=== PATIENT | female | born 1940 | race Caucasian/White ===

== ENCOUNTER 2016-10-25 14:00 | Outpatient (CLI) | payer MEDICARE ==
[~2016-10-25] VITALS: Ht 157.5 cm; Wt 56.7 kg
[~2016-10-25 14:00] MED LIST: AMLO5TAB2 PO; ATOR10TA66 PO; BENA20TA2 PO; HYDR-3714 PO; LISI20TA PO; NAPR220C11 PO; PANT40TA2 PO; PRAV40TA2 PO; UBID1CAP53 PO; VITAMINE D3 PO
== END 2016-10-25 14:27 ==
LOC: PREOP 14:00
PROVIDERS: ATTEND Surgery
DX: Z01.818 Encounter for other preprocedural examination (principal); Z12.11 Encounter for screening for malignant neoplasm of colon

== ENCOUNTER → 2016-11-30 | Outpatient (CLI) | payer MEDICARE | LOC: PREOP 05:39 | PROVIDERS: ATTEND Surgery | DX: Z01.818 Encounter for other preprocedural examination (principal); Z12.11 Encounter for screening for malignant neoplasm of colon ==

== ENCOUNTER 2016-12-04 06:26 | Day surgery (SDC) | payer MEDICARE ==
[~2016-12-04] VITALS: Ht 157.5 cm; Wt 61.2 kg
[2016-12-04] MEDS ORDERED: FLUMAZENIL (ROMAZICON) 0.1 MG/ML 5 ML VIAL INJ PRN (06:45)
[2016-12-04] MEDS ORDERED: NALOXONE 0.4 MG/ML 1 ML (NARCAN) VIAL IVP PRN (06:45)
[2016-12-04] MEDS ORDERED: NS IV 500 ML 500 ML IV SCH (06:45)
[2016-12-04 06:57] VITALS: BP 127/58
[2016-12-04] MEDS ORDERED: MIDAZOLAM 2 MG/2 ML (VERSED) VIAL ONE ×3 (07:49→08:47)
[2016-12-04] MEDS ORDERED: fentaNYL INJECTION 100 MCG/2 ML AMP ONE (07:50)
[2016-12-04] MEDS: fentaNYL INJECTION 100 MCG/2 ML AMP IVP PRN ×2 (08:38→08:47)
[2016-12-04] MEDS: MIDAZOLAM 2 MG/2 ML (VERSED) VIAL IVP PRN ×3 (08:40→08:50)
--- NOTE | 2016-12-04 09:05 | Endoscopy Procedure Report ---
Endoscopy Report Date: December 04, 2016 Preoperative Diagnosis: screening Study Performed: Colonoscopy Procedure Instrument: Colonoscope Endo Procedure/Findings Findings 1.: Diverticulitis Copy Copies To 1: HARPAL BURR XAVIER M MD December 04, 2016 9:05 am
--- NOTE | 2016-12-04 09:05 | Conscious Sedation/ASA ---
Conscious Sedation Pre-Proced Time Reviewed: 08:20 ASA Class: 2 Airway Mallampati Classification: (seneca appropriate class) I. II. III, IV Lungs Heart ASA score ASA 1: a normal healthy patient ASA 2: a patient with a mild systemic disease (mid diabetes, controlled hypertension, obesity ASA 3: a patient with a severe systemic disease that limits activity (angina , COPD, prior Myocardial infarction) ASA 4: a patient with an incapacitating disease that is a constant threat to life (CHF, renal failure) ASA 5: a moribund patient not expected to survive 24 hrs. (ruptured aneurysm) ASA 6: a declared brain patient whose organs are being harvested. For emergent operations, add the letter E after the classification Grade 1 Sedation Plan: Discussed options with patient/fam Note The patient is an appropriate candidate to undergo the planned procedure, sedation, and anesthesia. The patient immediately re-assessed prior to indication. JURGEN GARCIA MD December 04, 2016 9:05 am
--- NOTE | 2016-12-04 09:07 | Discharge Inst-Simple/Standard ---
Discharge Inst-Standard Discharge Medications New, Converted or Re-Newed RX: Other Patient Instructions/Follow Up Plan of Care/Instructions/FU: follow-up with her primary as needed Activity as Tolerated: Yes Discharge Diet: No Restrictions JURGEN GARCIA MD December 04, 2016 9:06 am
[2016-12-04 09:15] VITALS: BP 113/71
--- NOTE | 2016-12-04 09:20 | OPERATIVE REPORT ---
DATE OF SERVICE: 12/04/2016 PROCEDURE PERFORMED: Screening colonoscopy. SURGEON: Jurgen Garcia M.D. INDICATIONS FOR PROCEDURE: This lady came in for screening colonoscopy. She denied any family history of colon cancer. Informed consent was obtained after reviewing the procedure in detail. DESCRIPTION OF PROCEDURE: She was placed in left lateral decubitus position and her vital signs were monitored. Conscious sedation was achieved using Versed and fentanyl. Digital rectal examination was unremarkable. The colonoscope was then introduced into the rectum and advanced all the way up to the cecum. The quality of bowel preparation was acceptable. The scope was then withdrawn slowly and the mucosa examined in a systematic fashion. FINDINGS: 1. Very few sigmoid diverticula. 2. A 2 mm submucosal lipoma, close to the cecum. This may well be observed. She tolerated the procedure well and was taken back to the nursing unit in stable condition. IMPRESSION: Screening colonoscopy. No polyps. Incidental, small submucosal lipoma, reasonable to observe. Job ID: [id number] DocumentID: [id number] Dictated Date: 12/04/2016 09:01:43 Sql Programmer Date: 12/04/2016 09:20:07 Dictated By: JURGEN GARCIA MD [facility]
[2016-12-04 09:45] VITALS: BP 117/74
[2016-12-04 10:05] VITALS: BP 117/74
== END 2016-12-04 10:05 | disposition home or self-care (01) ==
LOC: ENDO 06:26
PROVIDERS: ATTEND Surgery
DX: Z12.11 Encounter for screening for malignant neoplasm of colon (principal); K57.90 Diverticulosis of intestine, part unspecified, without perforation or abscess without bleeding; D17.5 Benign lipomatous neoplasm of intra-abdominal organs; I10 Essential (primary) hypertension; H40.9 Unspecified glaucoma; Z79.899 Other long term (current) drug therapy

== ENCOUNTER → 2017-10-17 | Outpatient (CLI) | payer MEDICARE ==
--- NOTE | 2017-10-17 19:31 | Diagnostic Imaging Report ---
INDICATION: Sacral and lower back pain without injury. Pain comes and goes with no radiculopathy. Symptoms for approximately one year. COMPARISON STUDY: MRI of the lumbar spine from 2014. Plain films of the lumbar spine from 2014. FINDINGS: Frontal and lateral views of the lumbar spine demonstrate some increased disc space narrowing with development of mild anterolisthesis at L4-L5. Disc space narrowing at L5-S1 has not appreciably changed. Facet arthropathy is present in the lower lumbar spine. No fractures are present. IMPRESSION: There are increasing degenerative changes at L4-L5. No fractures are present. Dictated by: Dictated on workstation # [id number]
== END ==
LOC: RAD 16:54
PROVIDERS: ATTEND Family Medicine
DX: M47.816 Spondylosis without myelopathy or radiculopathy, lumbar region (principal)
CPT/HCPCS: 72100

== ENCOUNTER 2018-10-16 10:04 | Inpatient (IN) | payer MEDICARE ==
[~2018-10-16] VITALS: Ht 154.9 cm; Wt 62.7 kg
[~2018-10-16 10:04] MED LIST changes: -BENA20TA2 PO; +BENA20TA7 PO
--- OUTSIDE RECORDS SUMMARY | 2018-10-16 10:21 | XMS REPORT | Continuity of Care Document ---
Author Author [facility] Organization [facility] Address Unknown Phone Unavailable Allergies Active Description Code Type Severity Reaction Onset Reported/Identified Relationship to Patient Clinical Status Yes No Known Drug Allergies [id number] Drug Allergy Unknown N/A 04/29/2012 Medications There is no data. Problems Date Dx Coded Attending Type Code Diagnosis Diagnosed By 04/30/2012 Ot 211.3 BENIGN NEOPLASM LG BOWEL 04/30/2012 Ot 214.3 LIPOMA INTRA- ABDOMINAL 04/30/2012 Ot V12.72 PERSONAL HISTORY OF COLONIC POLYPS 04/30/2012 Ot V76.51 SCREEN MAL NEOP-COLON 02/03/2013 HARPAL TEJEDA DO S Ot 724.00 SPINAL STENOSIS NOS 02/03/2013 HARPAL TEJEDA DO S Ot V57.1 PHYSICAL THERAPY NEC 03/09/2014 NICKI SWIFT, ZAIN Baum Ot 722.10 LUMBAR DISC DISPLACEMENT 03/09/2014 NICKI SWIFT, ZAIN Baum Ot 724.03 SPINAL STENOSIS, LUMBAR REGION, W NEUROG 01/20/2016 RADHA SWIFT, JURGEN Wood Ot K25.0 ACUTE GASTRIC ULCER WITH HEMORRHAGE 01/20/2016 RADHA SWIFT, JURGEN Wood Ot K29.80 DUODENITIS WITHOUT BLEEDING 01/21/2016 RADHA SWIFT, JURGEN Wood Ot K25.0 ACUTE GASTRIC ULCER WITH HEMORRHAGE 01/21/2016 RADHA SWIFT, JURGEN Wood Ot K29.80 DUODENITIS WITHOUT BLEEDING 02/15/2016 Ot V76.12 OTH SCREEN MAMMO-MALIGN NEOPLASM OF SARTHAK 02/15/2016 Ot V72.84 EXAM PRE- OPERATIVE NOS 02/15/2016 HARPAL TEJEDA DO S Ot 724.02 SPINAL STENOSIS, LUMBAR REG, W/OUT NEURO 02/15/2016 HARPAL TEJEDA DO S Ot 724.2 LUMBAGO 02/15/2016 ZAIN CACERES MD Ot 722.52 LUMB/LUMBOSAC DISC DEGEN 02/15/2016 ZAIN CACERES MD Ot 724.02 SPINAL STENOSIS, LUMBAR REG, W/OUT NEURO 02/15/2016 ZAIN CACERES MD Ot V72.63 PRE-PROCEDURAL LABORATORY EXAMINATION 02/15/2016 ZAIN CACERES MD Ot V74.8 SCREEN-BACTERIAL DIS NEC 02/16/2016 PATI LUNA Bella CARGO ROUTER Ot F03.90 UNSPECIFIED DEMENTIA WITHOUT BEHAVIORAL 02/16/2016 PATI LUNA Bella CARGO ROUTER Ot R41.3 OTHER AMNESIA 03/02/2016 ORENDER DO, HARPAL S Ot 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 03/02/2016 ORENDER DO, HARPAL S Ot 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 03/02/2016 ORENDER DO, HARPAL S Ot R01.1 CARDIAC MURMUR, UNSPECIFIED 03/07/2016 PATI LUNA Bella CARGO ROUTER Ot F03.90 UNSPECIFIED DEMENTIA WITHOUT BEHAVIORAL 03/07/2016 PATI LUNA Bella CARGO ROUTER Ot R41.3 OTHER AMNESIA 03/24/2016 ORENDER DO, HARPAL S Ot 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 03/24/2016 ORENDER DO, HARPAL S Ot 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 03/24/2016 ORENDER DO, HARPAL S Ot R01.1 CARDIAC MURMUR, UNSPECIFIED 10/25/2016 RADHA SWIFT, JURGEN Wood Ot Z01.818 ENCOUNTER FOR OTHER PREPROCEDURAL EXAMIN 10/25/2016 RADHA SWIFT, JURGEN Wood Ot Z12.11 ENCOUNTER FOR SCREENING FOR MALIGNANT NE 10/25/2016 RADHA SWIFT, JURGEN Wood Ot Z01.818 ENCOUNTER FOR OTHER PREPROCEDURAL EXAMIN 10/25/2016 JURGEN GARCIA MD Ot Z12.11 ENCOUNTER FOR SCREENING FOR MALIGNANT NE 10/27/2016 RADHA SWIFT, JURGEN Wood Ot Z01.818 ENCOUNTER FOR OTHER PREPROCEDURAL EXAMIN 10/27/2016 RADHA SWIFT, JURGEN Wood Ot Z12.11 ENCOUNTER FOR SCREENING FOR MALIGNANT NE 10/27/2016 RADHA SWIFT, JURGEN Wood Ot Z01.818 ENCOUNTER FOR OTHER PREPROCEDURAL EXAMIN 10/27/2016 RADHA SWIFT, JURGEN Wood Ot Z12.11 ENCOUNTER FOR SCREENING FOR MALIGNANT NE 12/04/2016 Ot V76.12 OTH SCREEN MAMMO-MALIGN NEOPLASM OF SARTHAK 12/04/2016 Ot V72.84 EXAM PRE- OPERATIVE NOS 12/04/2016 HARPAL TEJEDA DO Ot 724.02 SPINAL STENOSIS, LUMBAR REG, W/OUT NEURO 12/04/2016 HARPAL TEJEDA DO Ot 724.2 LUMBAGO 12/04/2016 ZAIN CACERES MD Ot 722.52 LUMB/LUMBOSAC DISC DEGEN 12/04/2016 ZAIN CACERES MD Ot 724.02 SPINAL STENOSIS, LUMBAR REG, W/OUT NEURO 12/04/2016 ZAIN CACERES MD Ot V72.63 PRE-PROCEDURAL LABORATORY EXAMINATION 12/04/2016 ZAIN CACERES MD Ot V74.8 SCREEN-BACTERIAL DIS NEC 12/04/2016 PATI LUNA CARGO ROUTER Ot F03.90 UNSPECIFIED DEMENTIA WITHOUT BEHAVIORAL 12/04/2016 PATI LUNA CARGO ROUTER Ot R41.3 OTHER AMNESIA 12/04/2016 HARPAL TEJEDA DO Ot 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 12/04/2016 HARPAL TEJEDA DO S Ot 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 12/04/2016 HARPAL TEJEDA DO S Ot R01.1 CARDIAC MURMUR, UNSPECIFIED 12/04/2016 RADHA SWIFT, JURGEN Wood Ot Z01.818 ENCOUNTER FOR OTHER PREPROCEDURAL EXAMIN 12/04/2016 JURGEN GARCIA MD Ot Z12.11 ENCOUNTER FOR SCREENING FOR MALIGNANT NE 12/04/2016 JURGEN GARCIA MD Ot 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 12/04/2016 JURGEN GARCIA MD Ot H40.9 UNSPECIFIED GLAUCOMA 12/04/2016 JURGEN GARCIA MD Ot I10 ESSENTIAL (PRIMARY) HYPERTENSION 12/04/2016 JURGEN GARCIA MD Ot K57.90 DVRTCLOS OF INTEST, PART UNSP, W/O PERF 12/04/2016 JURGEN GARCIA MD Ot Z12.11 ENCOUNTER FOR SCREENING FOR MALIGNANT NE 12/04/2016 JURGEN GARCIA MD Ot Z79.899 OTHER HUMAN RESOURCES VICE PRESIDENT (CURRENT) DRUG THERAPY 12/06/2016 JURGEN GARCIA MD Ot 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 12/06/2016 JURGEN GARCIA MD Ot H40.9 UNSPECIFIED GLAUCOMA 12/06/2016 JURGEN GARCIA MD Ot I10 ESSENTIAL (PRIMARY) HYPERTENSION 12/06/2016 JURGEN GARCIA MD Ot K57.90 DVRTCLOS OF INTEST, PART UNSP, W/O PERF 12/06/2016 JURGEN GARCIA MD Ot Z12.11 ENCOUNTER FOR SCREENING FOR MALIGNANT NE 12/06/2016 JURGEN GARCAI MD Ot Z79.899 OTHER HUMAN RESOURCES VICE PRESIDENT (CURRENT) DRUG THERAPY 12/15/2016 JURGEN GARCIA MD Ot 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 12/15/2016 JURGEN GARCIA MD Ot H40.9 UNSPECIFIED GLAUCOMA 12/15/2016 JURGEN GARCIA MD Ot I10 ESSENTIAL (PRIMARY) HYPERTENSION 12/15/2016 JURGEN GARCIA MD Ot K57.90 DVRTCLOS OF INTEST, PART UNSP, W/O PERF 12/15/2016 JURGEN GARCIA MD Ot Z12.11 ENCOUNTER FOR SCREENING FOR MALIGNANT NE 12/15/2016 JURGEN GARCIA MD Ot Z79.899 OTHER [facility] (CURRENT) DRUG THERAPY 10/18/2017 Ot V72.84 EXAM PRE- OPERATIVE NOS 10/18/2017 HARPAL TEJEDA DO Ot 724.02 SPINAL STENOSIS, LUMBAR REG, W/OUT NEURO 10/18/2017 HARPAL TEJEDA DO Ot 724.2 LUMBAGO 10/18/2017 ZAIN CACERES MD Ot 722.52 LUMB/LUMBOSAC DISC DEGEN 10/18/2017 ZAIN CACERES MD Ot 724.02 SPINAL STENOSIS, LUMBAR REG, W/OUT NEURO 10/18/2017 ZAIN CACERES MD Ot V72.63 PRE-PROCEDURAL LABORATORY EXAMINATION 10/18/2017 ZAIN CACERES MD Ot V74.8 SCREEN-BACTERIAL DIS NEC 10/18/2017 PATI LUNA CARGO ROUTER Ot F03.90 UNSPECIFIED DEMENTIA WITHOUT BEHAVIORAL 10/18/2017 PATI LUNA CARGO ROUTER Ot R41.3 OTHER AMNESIA 10/18/2017 HARPAL TEJEDA DO Ot 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 10/18/2017 HARPAL TEJEDA DO Ot 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 10/18/2017 HARPAL TEJEDA DO Ot R01.1 CARDIAC MURMUR, UNSPECIFIED 10/18/2017 RADHA SWIFT, JURGEN Wood Ot Z01.818 ENCOUNTER FOR OTHER PREPROCEDURAL EXAMIN 10/18/2017 JURGEN GARCIA MD Ot Z12.11 ENCOUNTER FOR SCREENING FOR MALIGNANT NE 10/18/2017 HARPAL TEJEDA DO Ot M47.816 SPONDYLOSIS W/O MYELOPATHY OR RADICULOPA 10/18/2017 AMINAH CHRISTIANSON HARPAL Marsh Ot M47.816 SPONDYLOSIS W/O MYELOPATHY OR RADICULOPA 11/14/2017 AMINAH CHRISTIANSON HARPAL S Ot M47.816 SPONDYLOSIS W/O MYELOPATHY OR RADICULOPA Procedures There is no data. Results There is no data. Encounters ACCT No. Visit Date/Time Discharge Status Pt. Type Provider Facility Loc./Unit Complaint [id number] 10/17/2017 16:54:00 10/17/2017 23:59:59 CLS Outpatient AMINAH DO HARPAL S [facility] RAD M54.5 [id number] 12/04/2016 06:26:00 12/04/2016 10:05:00 DIS Outpatient JURGEN GARCIA MD [facility] ENDO SCREENING [id number] 11/30/2016 05:39:00 11/30/2016 23:59:59 CLS Outpatient JURGEN GARCIA MD [facility] PREOP SCREENING [id number] 10/25/2016 14:00:00 10/25/2016 14:27:00 DIS Outpatient JURGEN GARCIA MD [facility] PREOP SCREENING [id number] 03/01/2016 10:26:00 03/01/2016 23:59:59 CLS Outpatient HARPAL TEJEDA DO S [facility] RAD CHRONIC MICROVASCULAR ISCHEMIC,CARDIAC MURMUR [id number] 02/15/2016 14:35:00 02/15/2016 23:59:59 CLS Outpatient PATI LUNA APRN [facility] RAD AMNESIA, UNSPECIFIED DEMENTIA [id number] 01/20/2016 12:02:00 01/20/2016 16:00:00 DIS Outpatient JURGEN GARCIA MD [facility] BLACK TARY STOOLS [id number] 03/09/2014 06:00:00 03/09/2014 16:07:00 DIS Outpatient ZAIN CACERES MD [facility] STENOSIS [id number] 03/05/2014 09:23:00 03/05/2014 23:59:59 CLS Outpatient ZAIN CACERES MD [facility] PREOP STENOSIS [id number] 01/26/2014 10:11:00 01/26/2014 23:59:59 CLS Outpatient ZAIN CACERES MD [facility] RAD LUMBAR STENOSIS [id number] 01/08/2013 08:56:00 02/03/2013 14:50:00 DIS Outpatient HARPAL TEJEDA DO [facility] REHAB BACK PAIN SPINAL STENOSIS [id number] 12/16/2012 13:14:00 12/16/2012 23:59:59 CLS Outpatient HARPAL TEJEDA DO [facility] RAD LOW BACK PAIN [id number] 04/30/2012 08:11:00 Document Registration [id number] 04/29/2012 08:06:00 Document Registration [id number] 04/22/2012 11:16:00 Document Registration 01/201710/15/2018 14:39:33 ACT Outpatient Harpal Tejeda.
--- NOTE | 2018-10-16 10:29 | NUR ---
SEE LIST FOR CURRENT MEDS
[2018-10-16 10:48] LABS: BILIRUBIN,URINE NEGATIVE (NEGATIVE); CLARITY,URINE VERY CLOUDY; COLOR,URINE YELLOW; GLUCOSE, URINE (UA) NEGATIVE (NEGATIVE); KETONES,URINE NEGATIVE (NEGATIVE); LEUKOCYTE ESTERASE ,URINE 3+ (NEGATIVE); NITRITE,URINE NEGATIVE (NEGATIVE); PH,URINE 7 (5-9); PROTEIN,URINE 2+ (NEGATIVE); UROBILINOGEN,URINE NORMAL (NORMAL)
--- NOTE | 2018-10-16 10:56 | ED Fall/Injury ---
General Chief Complaint: Trauma-Non Activation Stated Complaint: FALL;LEFT SIDE PAIN;LEG PAIN Nursing Triage Note: PT AMBULATED TO ROOM 3 PT CO OF FALL YESTERDAY, HAS L RIB PAIN, DENIES HITTING HEAD, HAS SCAR FROM HITTING HEAD A FEW WEEKS AGO. PT WAS SEEN BY DR TEJEDA YESTERDAY. PT HAS DEMENTIA AND DAUGHTER STATES WORSE PAST COUPLE WEEKS, HAS HAD TO HAVE FAMILY STAT W HER DURING NITE. Source: patient, family Exam Limitations: no limitations History of Present Illness Date Seen by Provider: Oct 16, 2018 Time Seen by Provider: 10:55 Initial Comments To ER per private vehicle with reports of a fall yesterday and one also 3 weeks ago. She did not hit her head during either of these. She does have some left upper abdominal lower chest pain. She was seen by Dr. TEJEDA yesterday. She had blood work done yesterday at [facility] labs showing a TSH of 1.8, sodium 138, potassium 4.3, glucose 158, creatinine 0.9, BUN 18, normal liver enzymes and osmolality. CBC showed white count 12.4 hemoglobin of 10, platelets of 510,000. These labs were obtained from that line and attached to her chart as a paper copy to be scanned in. Location Injury Occurred: HOME Occurred: yesterday Severity: moderate Injuries/Pain Location: chest, abdomen Loss of Consciousness: brief (seconds) Modifying Factors: Worse With Movement Associated Symptoms (Fall): Abdominal Pain, Chest Pain Allergies and Home Medications Allergies Coded Allergies: No Known Drug Allergies (Unverified , 04/29/12) Home Medications Amlodipine Besylate 5 Mg Tablet, 5 MG PO DAILY, (Reported) Patient Home Medication List Home Medication List Reviewed: Yes Review of Systems Review of Systems Constitutional: see HPI Eyes: No Symptoms Reported Ears, Nose, Mouth, Throat: no symptoms reported Respiratory: no symptoms reported Cardiovascular: no symptoms reported Gastrointestinal: abdominal pain Genitourinary: no symptoms reported Musculoskeletal: no symptoms reported Skin: no symptoms reported Psychiatric/Neurological: No Symptoms Reported Past Wkgggwp-Voyyej-Tjevou Hx Patient Social History Alcohol Use: Occasionally Uses Number of Drinks Today: 0 Alcohol Beverage of Choice: Beer Recreational Drug Use: No Smoking Status: Never a Smoker Recent Foreign Travel: No Contact w/Someone Who Travel: No Recent Infectious Disease Expo: No Recent Hopitalizations: No Immunizations Up To Date Tetanus Booster (TDap): Unknown Seasonal Allergies Seasonal Allergies: No Past Medical History Surgeries: Yes (CATARACTS, BACK ) Respiratory: No Cardiac: Yes Hypertension Neurological: Yes Dementia Reproductive Disorders: No Female Reproductive Disorders: Denies Sexually Transmitted Disease: No HIV/AIDS: No Genitourinary: No Gastrointestinal: Yes (HX COLON POLYPS) Musculoskeletal: Yes (STENOSIS) Endocrine: No Cataract Hearing Impairment: Bilateral Hearing Aide Cancer: No Psychosocial: No Integumentary: No Blood Disorders: No Adverse Reaction/Blood Tranf: No Physical Exam Vital Signs Vital Signs - First Documented 10/16/18 10:10 Temp 97.7 Pulse 83 Resp 18 B/P (MAP) 162/72 (102) Pulse Ox 100 Capillary Refill : Less Than 3 Seconds Height, Weight, BMI Height: 5'1.00" Weight: 145lbs. 0.0oz. 65.563470sr; 24.7 BMI Method:Stated General Appearance: WD/WN, no apparent distress HEENT: PERRL/EOMI, normal ENT inspection Respiratory: no respiratory distress, no accessory muscle use Gastrointestinal: normal bowel sounds, soft, tenderness (tenderness to palpation left upper abdomen over the 10th rib) Extremities: normal range of motion, non-tender Neurologic/Psychiatric: alert, normal mood/affect Skin: normal color, warm/dry Sherwin Coma Score Best Eye Response: (4) Open Spontaneously Best Verbal Response: (5) Oriented Best Motor Response: (6) Obeys Commands [place] Total: 15 Progress/Results/Core Measures Results/Orders Lab Results Laboratory Tests Test 10/16/18 10:26 Range/Units Urine Color YELLOW Urine Clarity VERY CLOUDY H Urine pH 7 5-9 Urine Specific Hagerman 1.010 L 1.016-1.022 Urine Protein 2+ H NEGATIVE Urine Glucose (UA) NEGATIVE NEGATIVE Urine Ketones NEGATIVE NEGATIVE Urine Nitrite NEGATIVE NEGATIVE Urine Bilirubin NEGATIVE NEGATIVE Urine Urobilinogen NORMAL NORMAL MG/DL Urine Leukocyte Esterase 3+ H NEGATIVE Urine RBC (Auto) 2+ H NEGATIVE Urine RBC 5-10 H /HPF Urine WBC >100 H /HPF Urine Squamous Epithelial Cells >50 H /HPF Urine Crystals NONE /LPF Urine Bacteria MODERATE H /HPF Urine Casts NONE /LPF Urine Mucus NEGATIVE /LPF Urine Culture Indicated YES My Orders Orders - SABINE BARRON APRN Ct Abdomen/Pelvis Wo (10/16/18 10:54) Iv Heplock-Insert (Order) (10/16/18 12:01) Ceftriaxone For Iv Use (Rocephin For I (10/16/18 12:15) Tramadol Tablet (Ultram Tablet) (10/16/18 12:15) Ct Head/Cervical Spine Wo (10/16/18 12:24) Vital Signs/I&O 10/16/18 10:10 Temp 97.7 Pulse 83 Resp 18 B/P (MAP) 162/72 (102) Pulse Ox 100 Blood Pressure Mean: 102 Diagnostic Imaging Diagonstic Imaging: CT Comments NAME: VINCENT HER[facility]NDEZ [facility] REC#: [id number] PT STATUS: REG ER : 1940 PHYSICIAN: SABINE BARRON APRN ADMIT DATE: 10/16/18/ER Draft Date of Exam:10/16/18 CT ABDOMEN/PELVIS WO PROCEDURE: CT abdomen and pelvis without contrast. TECHNIQUE: Multiple contiguous axial images were obtained through the abdomen and pelvis without the use of intravenous contrast. Auto Exposure Controls were utilized during the CT exam to meet ALARA standards for radiation dose reduction. INDICATION: Left-sided pain, fall. COMPARISON: No prior studies are available for comparison. FINDINGS: Lung bases are clear. There is a fracture involving the left posterior 11th and 10th ribs. No parenchymal contusion or pneumothorax is seen. No focal splenic laceration or perisplenic fluid collection is identified. Liver is unremarkable. Gallbladder contains small stones. There is no biliary ductal dilatation. The pancreas is unremarkable. Adrenal glands are unremarkable. The left kidney does contain a cortical cyst posteriorly measuring 18 mm. No calculi or hydronephrosis is seen. Aorta is calcified but nonaneurysmal. Small and large bowel loops are normal caliber. No hemoperitoneum is seen. The bladder and uterus are unremarkable. IMPRESSION: 1. Left posterior 10th and 11th rib fractures. No other significant abnormality is seen. No abdominal or pelvic visceral injury is identified. 2. Cholelithiasis. Dictated on workstation # [id number] Dict: 10/16/18 1145 Trans: 10/16/18 1153 [facility] [id number] Interpreted by: ALVINO BERMUDEZ MD Electronically signed by: Departure Communication (Admissions) Time/Spoke to Admitting Phy: 12:11 Time/Spoke to Consulting Phy: 12:[address] Tejeda, agrees to admit. Since she is elderly with 2 rib fractures we will consult Dr. Peña from trauma standpoint no intervention should be required. Given the 2 rib fractures, urinary tract infection and increasing falls, she would warrant admission for some IV antibiotics and pain control and surgical consult. This would be The family's preference as well. Impression Primary Impression: Urinary tract infection Qualified Codes: N30.00 - Acute cystitis without hematuria Additional Impression: Fracture of rib of left side Qualified Codes: S22.42XA - Multiple fractures of ribs, left side, initial encounter for closed fracture Disposition: HOME, SELF-CARE Condition: Stable Admissions Decision to Admit Reason: Admit from ER (General) Decision to Admit/Date: Oct 16, 2018 Time/Decision to Admit Time: 12:11 Transfer Time Spoke to Accepting Phy: 12:11 Departure-Patient Inst. Decision time for Depature: 11:47 Referrals: HARPAL TEJEDA DO (PCP/Family) Primary Care Physician Patient Instructions: RIB FRACTURE, Urinary Tract Infections in Adults Add. Discharge Instructions: All discharge instructions reviewed with patient and/or family. Voiced understanding. SABINE BARRON [employer] OFFICER Oct 16, 2018 10:56
[2018-10-16 11:00] LABS: BACTERIA,URINE MODERATE /HPF; SQUAMOUS EPITHELIAL CELL,UR >50 /HPF; WBC,URINE >100 /HPF
--- NOTE | 2018-10-16 11:33 | Diagnostic Imaging Report ---
INDICATION: Fall and left rib pain. TIME OF EXAM: 11:02 AM No prior studies are available for comparison. FINDINGS: Heart size is normal. Lungs are clear. No infiltrate or pulmonary contusion is seen. No effusion or pneumothorax is detected. No definite rib fracture is seen. IMPRESSION: No acute abnormality is detected. Dictated by: Dictated on workstation # [id number]
--- NOTE | 2018-10-16 11:53 | Diagnostic Imaging Report ---
PROCEDURE: CT abdomen and pelvis without contrast. TECHNIQUE: Multiple contiguous axial images were obtained through the abdomen and pelvis without the use of intravenous contrast. Auto Exposure Controls were utilized during the CT exam to meet ALARA standards for radiation dose reduction. INDICATION: Left-sided pain, fall. COMPARISON: No prior studies are available for comparison. FINDINGS: Lung bases are clear. There is a fracture involving the left posterior 11th and 10th ribs. No parenchymal contusion or pneumothorax is seen. No focal splenic laceration or perisplenic fluid collection is identified. Liver is unremarkable. Gallbladder contains small stones. There is no biliary ductal dilatation. The pancreas is unremarkable. Adrenal glands are unremarkable. The left kidney does contain a cortical cyst posteriorly measuring 18 mm. No calculi or hydronephrosis is seen. Aorta is calcified but nonaneurysmal. Small and large bowel loops are normal caliber. No hemoperitoneum is seen. The bladder and uterus are unremarkable. IMPRESSION: 1. Left posterior 10th and 11th rib fractures. No other significant abnormality is seen. No abdominal or pelvic visceral injury is identified. 2. Cholelithiasis. Dictated by: Dictated on workstation # [id number]
[2018-10-16] MEDS ORDERED: cefTRIAXone FOR IV USE 1,000 MG in WATER (STERILE) FOR INJECTION 10 ML IV ONE (12:15)
--- NOTE | 2018-10-16 13:31 | Diagnostic Imaging Report ---
PROCEDURE: CT head and CT cervical spine without contrast. TECHNIQUE: Multiple contiguous axial images were obtained through the brain and cervical spine without the use of intravenous contrast. Sagittal and coronal reformations through the cervical spine were then performed. Auto Exposure Controls were utilized during the CT exam to meet ALARA standards for radiation dose reduction. INDICATION: Fall with left-sided pain. Correlation is made with prior head CT from 02/15/2016. CT head: FINDINGS: Ventricles and sulci are within normal limits. No sulcal effacement, midline shift, or hemorrhage is detected. Calcifications of bilateral basal ganglia and right caudate are stable. Cisterns are patent. Visualized paranasal sinuses are clear. IMPRESSION: No acute intracranial process is detected. CT cervical spine: FINDINGS: Alignment is normal. Multilevel degenerative disc disease is seen with variable disc space narrowing and marginal spurring. No fractures are identified. Prevertebral tissues are within normal limits. The odontoid is intact. Multilevel facet arthropathy is noted. IMPRESSION: Cervical spondylosis. No acute bony abnormality is detected. Dictated by: Dictated on workstation # [id number]
[2018-10-16 13:40] VITALS: BP 174/70
--- NOTE | 2018-10-16 13:46 | CONSULTATION REPORT ---
DATE OF SERVICE: 10/16/2018 ATTENDING PRIMARY CARE PHYSICIAN: Dr. Evon Tejeda. The patient is an 78-year-old female who we have seen before in the past. She does have a history of dementia and did have a fall yesterday and had left-sided rib pain. She did not lose consciousness at that time. She was seen by her primary care physician; however, no abnormalities were detected at that time and she was stable. Over the past day, she has had worsening pain in her back. A CT scan was performed, which did show left posterior rib fractures at 11 and 12. No other abnormalities were detected. She was also found to have a urinary tract infection. Her [place] coma scale is 14. PAST MEDICAL HISTORY: Dementia, hypertension, degenerative joint disease, hearing loss. PAST SURGICAL HISTORY: Cataract surgery, lumbar back surgery. ALLERGIES: No known drug allergies. MEDICATIONS: Amlodipine 5 mg daily. FAMILY HISTORY: Noncontributory. VITAL SIGNS: Temperature 97.7, blood pressure 162/72, pulse 83, respirations 18, pulse ox 100% on room air. REVIEW OF SYSTEMS: Well-nourished female, currently awake and alert; however, does have some level of confusion. She does report some back pain as well as flank pain as well. No cough or sputum production. No shortness of breath. No nausea, vomiting. No diarrhea or constipation. No red blood per rectum. No dark tarry stools. No fever, chills. No recent inadvertent weight loss. All other review of systems negative. PHYSICAL EXAMINATION: CHEST: A few scattered rales and rhonchi bilaterally with slight decreased breath sounds on the left base. HEART: Regular. No murmurs. HEENT: No scleral icterus or cervical lymphadenopathy. ABDOMEN: Soft, nontender, nondistended. SKIN: Warm, dry. A urinalysis did show 3+ leukocyte esterase, moderate bacteria. ASSESSMENT AND PLAN: An 78-year-old female with same level fall with fractured left posterior ribs 11 and 12. She was also found to have urinary tract infection as well as worsening confusion with a history of dementia. We will recommend adequate pain control with oral and IV pain medication as well as incentive spirometry and breathing treatments as well as antibiotics for prevention of pneumonia as well as to treat urinary tract infection. Job ID: [id number] DocumentID: [id number] Dictated Date: 10/16/2018 13:26:20 Senior Java [email or web address] Developer Date: 10/16/2018 13:45:50 Dictated By: DENVER UMANZOR MD
[2018-10-16] MEDS ORDERED: 1/2 NS IV SOLUTION 1,000 ML IV ONE (13:50)
[2018-10-16] MEDS ORDERED: ACETAMINOPHEN 325 MG TABLET PO PRN ×2 (15:00→18:45)
[2018-10-16] MEDS ORDERED: ONDANSETRON 4 MG/2 ML (SDV) Z0FRAN IV PRN (15:00)
[2018-10-16] MEDS: RT-ALBUTEROL/IPRATROPIUM 3 ML (DUONEB) VIAL INH SCH ×2 (15:24→21:44)
--- NOTE | 2018-10-16 15:46 | NUR ---
Pt is Sabianist and declines sacraments.
[2018-10-16 15:50] VITALS: BP 147/67
[2018-10-16] MEDS ORDERED: DORZ10DR18 OS (15:56)
[2018-10-16] MEDS ORDERED: TRAV5DRO OU (15:56)
[2018-10-16] MEDS ORDERED: AMLO5TAB9 PO (15:56)
[2018-10-16] MEDS ORDERED: DICL100G31 TOP (15:56)
[2018-10-16] MEDS ORDERED: ACET-2267 PO (16:01)
[2018-10-16] MEDS ORDERED: IBUP-30 PO (16:01)
--- NOTE | 2018-10-16 16:01 | NUR ---
PATIENTS DAUGHTER HAD A LIST OF MEDICATIONS WITH HER. I COMPARED IT WITH THE EXT MED HX. THE TRAVATAN EYE DROP DIRECTIONS STATE TO USE BID HOWEVER DAUGHTER STATES THEY ONLY DO IT AT HS. PATIENT TAKES TYLENOL AND ADVIL OTC ALTERNATING NEEDED.
--- NOTE | 2018-10-16 18:41 | History & Physicial ---
History of Present Illness History of Present Illness Reason for visit/HPI This is an 78 year old female with known dementia who was seen in my office yesterday with recent worsening of memory and falls. She sustained a recent fall with head trauma requiring sutures for a laceration above her right eye and another fall where she hit the left side of her ribs. Her main complaint yesterday was low back pain but her daughter was concerned about her worsening confusion and unsteadiness. They were also confused about TIAs. She was noted to have some left lower anterior rib pain and I told her that if that persisted then she would need x-rays to rule out a fracture. Laboratory work as well as CT scan of the brain and carotid dopplers were oredered. However, today she was having chest pain so she was brought to the emergency room. She was found to have rib fractures on the left in ribs 11 and 12. She was also found to have a UTI. A CT scan of the head and neck were accomplished due to her recent head trauma and these showed no acute changes. It was decided to admit her for IV antibiotics for her UTI as well as pain control and neurochecks due to her recent head trauma. The family also wants social service consult for possible placement due to her worsening dementia. Date of Admission Oct 16, 2018 at 12:13 Date Seen by a Provider: Oct 16, 2018 Time Seen by a Provider: 18:40 I consulted on this patient on 10/16/18 18:35 Attending Physician Evon Tejeda DO Admitting Physician Evon Tejeda DO Consult Allergies and Home Medications Allergies Coded Allergies: No Known Drug Allergies (Unverified , 04/29/12) Home Medications Acetaminophen 500 Mg Tablet, 500 MG PO Q4H PRN for PAIN-MILD, (Reported) Amlodipine Besylate 5 Mg Tablet, 5 MG PO DAILY, (Reported) Diclofenac Sodium 100 Gm Gel..gram., TOP BID PRN for ARTHRITIS PAIN, (Reported) Dorzolamide HCl 10 Ml Drops, 1 DROP OS BID, (Reported) Ibuprofen 200 Mg Tablet, 200-400 MG PO Q6H PRN for PAIN-MILD, (Reported) Travoprost 5 Ml Drops, 1 DROP OU HS, (Reported) Patient Home Medication List Home Medication List Reviewed: Yes Past Wrpwbnr-Vusjzl-Aqfiit Hx Patient Social History Alcohol Use: Occasionally Uses Number of Drinks Today: 0 Alcohol Beverage of Choice: Beer Recreational Drug Use: No Smoking Status: Never a Smoker Recent Foreign Travel: No Contact w/other who traveled: No Recent Hopitalizations: No Recent Infectious Disease Expo: No Immunizations Up To Date Tetanus Booster (TDap): Unknown Seasonal Allergies Seasonal Allergies: No Surgeries Yes (CATARACTS, BACK ) Respiratory No Cardiovascular Yes Hypertension Neurological Yes Dementia Reproductive System Hx Reproductive Disorders: No Sexually Transmitted Disease: No HIV/AIDS: No Female Reproductive Disorders: Denies Genitourinary No Gastrointestinal Yes (HX COLON POLYPS) Musculoskeletal Yes (STENOSIS) Endocrine History of Endocrine Disorders: No HEENT HEENT Disorders: Cataract Hearing Impairment: Bilateral Hearing Aide Cancer No Psychosocial History of Psychiatric Problem: No Integumentary History of Skin or Integumenta: No Blood Transfusions History of Blood Disorders: No Adverse Reaction to a Blood Tr: No Review of Systems Constitutional: weakness EENTM: No see HPI, No no symptoms reported, No ear discharge, No hearing loss, No ear pain, No blurred vision, No double vision, No eye pain, No tearing, No vision loss, No dental problems, No hoarseness, No mouth pain, No mouth swelling , No epistaxis, No nose congestion, No nose pain, No throat pain, No throat swelling, No other Respiratory: No no symptoms reported, No see HPI, No cough, No dyspnea on exertion, No hemoptysis, No orthopnea, No phlegm, No short of breath, No stridor , No wheezing, No other Cardiovascular: chest pain Gastrointestinal: No RUQ, No LUQ, No RLQ, No LLQ, No no symptoms reported, No see HPI, No abdominal pain, No constipation, No diarrhea, No dysphagia, No hematemesis, No heartburn, No jaundice, No loss of appetite, No melena, No nausea, No vomiting, No other Genitourinary: frequency, incontinence Musculoskeletal: back pain, muscle weakness Skin: other (recent right eye laceration) Psychiatric/Neurological: Weakness (falls), Other (confusion) Physical Exam Vital Signs Vital Signs - First Documented 10/16/18 10:10 Temp 97.7 Pulse 83 Resp 18 B/P (MAP) 162/72 (102) Pulse Ox 100 Capillary Refill : Less Than 3 Seconds Height, Weight, BMI Height: 5'1.00" Weight: 138lbs. 5.0oz. 62.294566on; 24.7 BMI Method:Stated General Appearance: No Apparent Distress HEENT: Normal ENT Inspection Neck: Supple Respiratory: Lungs Clear, Other (left lower anterior ribs tender on palpation and with movemen) Cardiovascular: Regular Rate, Rhythm Gastrointestinal: Normal Bowel Sounds, Non Tender, Soft Rectal: Deferred Back: No CVA Tenderness Extremity: Non Tender, No Calf Tenderness, No Pedal Edema Neurologic/Psychiatric: Alert, Disoriented Skin: Warm/Dry Assessment/Plan Assessment and Plan 1. Acute UTI--treat with rocephin due to history of recurrent UTIs 2. Frequent Falls with associated head trauma and left 11,12 rib fractures-- pain control and start PT for gait, IS to prevent pneumonia 3. Confusion with known dementia--CT scan negative but concern of TIAs so will also check carotid dopplers, SS to discuss placement 4. Hypertension--resume home medications Admission Diagnosis Admission Status: Inpatient Order (span 2 midnights) Reason for Inpatient Admission: Will need at least 2 nights of IV abx EVON TEJEDA DO Oct 16, 2018 18:40
[2018-10-16] MEDS: NS IV 1000 ML 1,000 ML IV SCH (19:00)
[2018-10-16 19:20] VITALS: BP 148/79
[2018-10-16] MEDS: TEMAZEPAM 7.5 MG CAP (RESTORIL) PO SCH (20:23)
[2018-10-16] MEDS: fentaNYL INJECTION 100 MCG/2 ML AMP IVP PRN (22:46)
[2018-10-17 00:07] VITALS: BP 125/68
[2018-10-17] MEDS: RT-ALBUTEROL/IPRATROPIUM 3 ML (DUONEB) VIAL INH SCH ×4 (03:22→20:30)
[2018-10-17 04:00] VITALS: BP 146/69
[2018-10-17] MEDS: NS IV 1000 ML 1,000 ML IV SCH (04:33)
[2018-10-17] MEDS: fentaNYL INJECTION 100 MCG/2 ML AMP IVP PRN ×3 (07:29→21:46)
[2018-10-17 08:22] VITALS: BP 156/72
--- NOTE | 2018-10-17 08:29 | Diagnostic Imaging Report ---
CHEST 1 VIEW, AP/PA ONLY Indication: Chest pain. Comparison: 10/16/2018. Findings: No focal airspace disease in the visualized lungs. Please note that the posterior lower lobes are poorly evaluated by portable radiography. No pleural effusion or pneumothorax. Normal cardiomediastinal silhouette. Impression: No acute cardiopulmonary process by portable radiography. Dictated by: Dictated on workstation # [id number]
--- NOTE | 2018-10-17 10:12 | Diagnostic Imaging Report ---
PROCEDURE: US carotid duplex, bilateral. TECHNIQUE: Multiple real-time grayscale images were obtained over the carotid arteries in various projections, bilaterally. Additional spectral analysis and color Doppler duplex images were also obtained. INDICATION: Carotid artery stenosis. There is some mild plaquing identified in the proximal ICAs bilaterally. Velocities are normal bilaterally. No velocity elevation or stenosis is seen. Both vertebral arteries demonstrate antegrade flow. IMPRESSION: Mild bilateral carotid plaque. There is no evidence of a hemodynamically significant stenosis. Parameters based on the consensus panel Angel-Scale and Doppler ultrasound criteria published May 2003, Radiology, Volume 229. DOPPLER (peak systolic velocity M/S Right Left CCA 0.9 0.82 ICA Proximal 0.74 0.85 ICA Mid 1.12 0.95 ICA Distal 1.1 1.2 RATIO 1.25 1.41 ECA 1.6 1.4 VERT 0.81 0.74 Dictated by: Dictated on workstation # [id number]
[2018-10-17] MEDS: cefTRIAXone 1,000 MG/SWFI 10 ML IV PUSH IV SCH ×2 (11:11)
[2018-10-17 12:00] VITALS: BP 157/78
--- NOTE | 2018-10-17 13:08 | Progress Note (SOAP) ---
Subjective Date Seen by a Provider: Oct 17, 2018 Time Seen by a Provider: 13:02 Subjective/Events-last exam Fwup UTI, falls with head trauma and left rib fracture, dementia with worsening confusion and possible recent TIA. Family considering SNF then NH vs AL for discharge. Did require fentanyl last night for both back pain and rib pain. Objective Exam Vital Signs Date Time Temp Pulse Resp B/P (MAP) Pulse Ox O2 Delivery O2 Flow Rate FiO2 10/17/18 09:13 96 Room Air 10/17/18 08:22 99.0 95 20 156/72 (100) 96 Room Air 10/17/18 08:00 Room Air 10/17/18 04:00 98.2 94 18 146/69 (94) 98 Room Air 10/17/18 03:22 95 Room Air 10/17/18 00:07 98.7 87 18 125/68 (87) 98 Room Air 10/16/18 21:44 95 Room Air 10/16/18 20:00 Room Air 10/16/18 19:45 Room Air 10/16/18 19:20 98.1 91 18 148/79 (102) 96 Room Air 10/16/18 15:50 98.8 90 18 147/67 (93) 94 Room Air 10/16/18 15:25 97 Room Air 10/16/18 13:40 98.7 81 18 174/70 (104) 97 Room Air 10/16/18 13:40 98.7 81 18 174/70 97 Room Air 10/16/18 13:39 83 18 162/72 (102) 100 I & O 10/17/18 07:00 Intake Total 410 ml Output Total 800 ml Balance -390 ml Capillary Refill : Less Than 3 SecondsLess Than 3 Seconds General Appearance: No Apparent Distress Respiratory: Lungs Clear, Other (lower anterior rib pain and pain on inspiration) Cardiovascular: Regular Rate, Rhythm Extremity: Non Tender, No Calf Tenderness, No Pedal Edema Neurologic/Psychiatric: Alert, Disoriented Skin: Warm/Dry Results Lab Microbiology 10/16/18 Urine Culture - Preliminary, Resulted Mixed Bacterial Petty With Gram Negative Bacillus 1 Assessment/Plan Assessment/Plan Assess & Plan/Chief Complaint 1. UTI--continue rocephin 2. Falls with head trauma, low back pain and left 11/12 rib fractures--start PT for strengthening/gait/fall risk, has tramadol and fentanyl prn, IS to prevent pneumonia 3. Dementia with worsening confusion--discussed this may be a new level for her dementia or could be due to possible recent TIA--she does have carotid artery stenosis, we have avoided aspirin because of her falls and especially because her most recent fall involved head trauma with a head laceration, family deciding on SNF/NH vs AL Clinical Quality Measures Admission Status Admission Dx 1. Acute UTI--treat with rocephin due to history of recurrent UTIs 2. Frequent Falls with associated head trauma and left 11,12 rib fractures-- pain control and start PT for gait, IS to prevent pneumonia 3. Confusion with known dementia--CT scan negative but concern of TIAs so will also check carotid dopplers, SS to discuss placement 4. Hypertension--resume home medications DVT/VTE Risk/Contraindication: Risk Factor Score Per Nursin RFS Level Per Nursing on Admit: 2=Moderate HARPAL BURR DO Oct 17, 2018 13:08
--- NOTE | 2018-10-17 13:41 | Physical Therapy Evaluation ---
PT Evaluation-General Medical Diagnosis Admission Date Oct 16, 2018 at 12:13 Medical Diagnosis: UTI; falls Onset Date: Oct 16, 2018 Therapy Diagnosis Therapy Diagnosis: weakness Height/Weight Height (Feet): 5 Height (Inches): 1.00 Weight (Pounds): 138 Weight (Ounces): 5.0 Precautions Precautions/Isolations: Fall Prevention, Standard Precautions Referral Physician: Ileana Reason for Referral: Evaluation/Treatment Medical History Pertinent Medical History: Dementia, HTN Additional Medical History recent fall at home and sustained a head laceration. Current History pt admitted to hospital with recent fall that resulted in left rib fractures at 10 and 11. She was found to have an UTI and being treated medically. Family reports increased confusion and falls at home. Reviewed History: Yes Social History Home: Single Level Current Living Status: Alone Entry Into Home: Stairs With Railing Prior/Core FIM Prior Level of Function Therapy Code Descriptions/Definitions Functional [place] Measure: 0=Not Assessed/NA 4=Minimal Assistance 1=Total Assistance 5=Supervision or Setup 2=Maximal Assistance 6=Modified [place] 3=Moderate Assistance 7=Complete [place] Therapy Quality Codes: 6 Independent with activity with or without an assistive device 5 Patient requires set up or clean up by helper. Patient completes activity by themselves 4 Supervision or touching assist (CGA). [place] provide cues , steadying assist 3 The helper provides less than half the effort to complete the activity 2 The helper provides more than half the effort to complete the activity 1 Dependent. The helper does all the effort to complete an activity 7 Patient refused to complete or attempt activity 9 The patient did not perform the activity before the current illness or injury 88 Not attempted due to Medical conditions or safety concerns Functional Abilities and Goals: Independent: Patient completed the activities by him/herself, with or without an assistive device, with no assistance from a helper. Needed Some Help: Patient needed partial assistance from another person to complete activities. Dependent: A helper completed the activities for the patient. Unknown: Not Applicable: Bed Mobility: 7 Transfers (B,C,W/C) (FIM): 7 Gait: 7 Indoor Mobility (Ambulation): Independent Pt is indep at home. PT Evaluation-Current Subjective Agrees to PT. Reports she has been up walking with her daughters in the halls. They confirm. Family reports she has more difficulty with mobiltiy in the morning due to stiffness/soreness after being in bed all night. Pain Numeric Pain Scale: 0-No Pain Location: No Pain Reported Objective Patient Orientation: Person, Confused (slightly), Place, Time Problem Solving: Fair ROM/Strength ROM Lower Extremities WNL Strength Lower Extremities WFl Integumentary/Posture Integumentary INTACT Bowel Incontinence: No Bladder Incontinence: No Posture normal and symmetrical Neuromuscular (Tone, Coordination, Reflexes) intact and functional Sensory Vision: Functional Hearing: Functional Sensation Right Lower Extremit: Intact Sensation Left Lower Extremity: Intact Transfers Therapy Code Descriptions/Definitions Functional [place] Measure: 0=Not Assessed/NA 4=Minimal Assistance 1=Total Assistance 5=Supervision or Setup 2=Maximal Assistance 6=Modified [place] 3=Moderate Assistance 7=Complete [place] Transfers (B, C, W/C) (FIM): 5 Sit to/from Stand: 5 (SBA due to decreased safety awareness. ) pt stood up from her chair with her bedside table in front of her; she was trying to step around or over the legs instead of moving the table. Gait Mode of Locomotion: Walk Anticipated Mode of Locomotion: Walk Gait (FIM): 5 Distance (FIM): 3=150 ft Distance: 400 ft Gait Assistive Device: None Comments/Gait Description SBA only for safety awareness. Pt steady with gait but is a bit impulsive. Stairs Stairs (FIM): 4 #of Steps: 11 Level of Assist: 4 CGA with supervision for safety. Reciprocal gait up/down the steps and uses the handrail Balance Sitting Static: Good Sitting Dynamic: Good Standing Static: Good Standing Dynamic: Good Assessment/Needs Pt presents with safe and steady gait and CGA on the stairs. Her primary limitation is decreased safety awareness. She is walking frequently with her daughters in the hospital. She will benefit form one additional visit tomorrow to ensure she is moving frequently and in a safe manner. Rehab Potential: Good PT Chcf Goals Chcf Goals PT Knocker Off Goals Time Frame: Oct 21, 2018 Transfers (B,C,W/C) (FIM): 7 Gait (FIM): 7 PT Plan Problem List Problem List: Activity Tolerance, Functional Strength, Safety Treatment/Plan Treatment Plan: Continue Plan of Care Treatment Plan: Functional Activity [place], Safety Treatment Duration: Oct 21, 2018 Frequency: 6 times per week Estimated Hrs Per Day: .25 hour per day Patient and/or Family Agrees t: Yes Safety Risks/Education Patient Education: Safety Issues Teaching Recipient: Patient Teaching Methods: Discussion Response to Teaching: Reinforcement Needed Time/GCodes Time In: 1300 Time Out: 1325 Total Billed Treatment Time: 25 Total Billed Treatment visit EVL 25 VESNA GAUTHIER PT Oct 17, 2018 13:41
--- NOTE | 2018-10-17 15:05 | NUR ---
CM/SS, respond to consult for out of home placement, visited with daughter Leandra Carrion known to video game script writer as a long time employee of this hospital. PLAN: Leandra will tour their choice assisted living facilities, [facility] and [facility], both in [place]. Leandra and video game script writer will discuss possible next steps later today or tomorrow. SUMMARY: Patient has 5 daughters and 2 sons. Because of patient's dementia and anxiety, the daughters have taken turns over the past 4 years either staying with patient at night or taking her to their homes for overnight. Patient apparently is more frightened at night and is not able to manage staying alone. Increasing falls/tumbles, two recently with injury. The girls have discussed that they can no longer adequately care for patient on the current schedule, that she is advancing into 24-7 care. This creates need for a decision to either move patient from her home or daughters change their life path and fully care for patient. Patient is insured Medicare only. Discussed shelter home placement and assisted living arrangement. Answered questions to Leandra's satisfaction regarding Medicare skilled benefits, private pay for assisted living, and possibility of a future Medicaid application. Children would sell patient's home and car and have funding for a period of time. Await family decision about what to pursue. Er Rn will send referrals as indicated. Family has asked video game script writer not to discuss any out of home placement with patient due to her pattern of worry and anxiety. Family will present when a final decision is made.
--- NOTE | 2018-10-17 15:57 | Progress Note (SOAP) ---
Subjective Date Seen by a Provider: Oct 17, 2018 Time Seen by a Provider: 15:45 Subjective/Events-last exam doing well. no complaints nor cough. ambulating well. confused. Objective Exam Vital Signs Date Time Temp Pulse Resp B/P (MAP) Pulse Ox O2 Delivery O2 Flow Rate FiO2 10/17/18 12:00 97.4 88 20 157/78 (104) 99 Room Air 10/17/18 09:13 96 Room Air 10/17/18 08:22 99.0 95 20 156/72 (100) 96 Room Air 10/17/18 08:00 Room Air 10/17/18 04:00 98.2 94 18 146/69 (94) 98 Room Air 10/17/18 03:22 95 Room Air 10/17/18 00:07 98.7 87 18 125/68 (87) 98 Room Air 10/16/18 21:44 95 Room Air 10/16/18 20:00 Room Air 10/16/18 19:45 Room Air 10/16/18 19:20 98.1 91 18 148/79 (102) 96 Room Air I & O 10/17/18 07:00 Intake Total 410 ml Output Total 800 ml Balance -390 ml Capillary Refill : Less Than 3 SecondsLess Than 3 Seconds General Appearance: No Apparent Distress HEENT: PERRL/EOMI Neck: Full Range of Motion Respiratory: Lungs Clear, Normal Breath Sounds Cardiovascular: Regular Rate, Rhythm Gastrointestinal: normal bowel sounds, non tender, soft Extremity: Normal Capillary Refill Neurologic/Psychiatric: Alert, Oriented x3 Skin: Normal Color Lymphatic: No Adenopathy Results Lab Microbiology 10/16/18 Urine Culture - Preliminary, Resulted Mixed Bacterial Petty With Gram Negative Bacillus 1 Assessment/Plan Assessment/Plan Assess & Plan/Chief Complaint same level fall with left rib fx, dementia. clinically doing better however will most likely need SNF. diet and physical therapy as tolerated. Clinical Quality Measures DVT/VTE Risk/Contraindication: Risk Factor Score Per Nursin RFS Level Per Nursing on Admit: 2=Moderate DENVER UMANZOR MD Oct 17, 2018 15:57
[2018-10-17 16:40] VITALS: BP 166/72
[2018-10-17 19:47] VITALS: BP 141/68
[2018-10-17] MEDS: TEMAZEPAM 7.5 MG CAP (RESTORIL) PO SCH (21:45)
[2018-10-18 00:45] VITALS: BP 153/67
[2018-10-18] MEDS: RT-ALBUTEROL/IPRATROPIUM 3 ML (DUONEB) VIAL INH SCH ×4 (03:06→21:45)
[2018-10-18 08:00] VITALS: BP 162/82
[2018-10-18] MEDS: fentaNYL INJECTION 100 MCG/2 ML AMP IVP PRN ×3 (08:02→14:13)
--- NOTE | 2018-10-18 09:39 | Physical Therapy Daily Note ---
PT Daily Note-Current Subjective Patient agrees to PT. Very confused but pleasant. Mental Status Patient Orientation: Confused Transfers Therapy Code Descriptions/Definitions Functional [place] Measure: 0=Not Assessed/NA 4=Minimal Assistance 1=Total Assistance 5=Supervision or Setup 2=Maximal Assistance 6=Modified [place] 3=Moderate Assistance 7=Complete [place] Therapy Quality Codes: 6 Independent with activity with or without an assistive device 5 Patient requires set up or clean up by helper. Patient completes activity by themselves 4 Supervision or touching assist (CGA). [place] provide cues , steadying assist 3 The helper provides less than half the effort to complete the activity 2 The helper provides more than half the effort to complete the activity 1 Dependent. The helper does all the effort to complete an activity 7 Patient refused to complete or attempt activity 9 The patient did not perform the activity before the current illness or injury 88 Not attempted due to Medical conditions or safety concerns Transfers (B, C, W/C) (FIM): 7 Scootin Rollin Supine to/from Sit: 7 Sit to/from Stand: 7 Bed to/from Chair: 7 Patient dons socks and shoes with set up by family Gait Training Gait (FIM): 7 Distance (FIM): 3=150 ft Distance: >800' Gait Level of Assist: 7 Gait Assistive Device: None Assessment Patient ambulates independently and will continue to ambulate with family PRN. PT to dismiss patient from services at this time. PT Child Welfare Counselor Goals Child Welfare Counselor Goals PT Child Welfare Counselor Goals Time Frame: Oct 21, 2018 Transfers (B,C,W/C) (FIM): 7 Gait (FIM): 7 PT Plan Treatment/Plan Treatment Plan: Discontinue PT, goals met Treatment Plan: Functional Activity Shakila, Safety Treatment Duration: Oct 21, 2018 Frequency: 6 times per week Estimated Hrs Per Day: .25 hour per day Patient and/or Family Agrees t: Yes Time/GCodes Time In: 845 Time Out: 855 Total Billed Treatment Time: 10 Total Billed Treatment 1 visit FA 10 min RACHELL MILLER PT Oct 18, 2018 09:38
--- NOTE | 2018-10-18 09:50 | NUR ---
CM/SS. Daughter Leandra Carrion updated freelance writer family desires referral to [facility] for Medicare skilled therapies, completed this a.m. Await confirmation of acceptance from [facility] staff. CARE Assessment pending. Family plan to pursue assisted living placement with [facility] after a short term rehab stay. Continue to partner with family to assist as possible.
[2018-10-18] MEDS ORDERED: amLODIPine 5 MG (NORVASC) TAB PO NR (10:00)
--- NOTE | 2018-10-18 10:39 | NUR ---
CM/SS. Patient has been accepted for new placement with [facility] when medically stable. Discussed with Dr. Tejeda, updated daughter Leandra Sheyla. CARE Assessment pending.
--- NOTE | 2018-10-18 10:51 | Progress Note (SOAP) ---
Subjective Date Seen by a Provider: Oct 18, 2018 Time Seen by a Provider: 10:44 Subjective/Events-last exam Fwup UTI, falls with head trauma and left rib fracture, dementia with worsening confusion and possible recent TIA. Up ambulating with PT this morning but now complains of pain in low back and right leg pain and burning/numbness as well as upper arms hurting and left rib pain. Appears in more distress this AM due to pain. Objective Exam Vital Signs Date Time Temp Pulse Resp B/P (MAP) Pulse Ox O2 Delivery O2 Flow Rate FiO2 10/18/18 08:07 98 Room Air 10/18/18 08:00 98.8 103 20 162/82 (108) 98 Room Air 10/18/18 03:06 95 Room Air 10/18/18 00:45 98.7 90 18 153/67 (95) 95 Room Air 10/17/18 20:30 94 Room Air 10/17/18 20:00 Room Air 10/17/18 19:47 98.4 88 20 141/68 (92) 95 Room Air 10/17/18 16:40 98.6 98 20 166/72 (103) 96 Room Air 10/17/18 15:49 97 Room Air 10/17/18 12:00 97.4 88 20 157/78 (104) 99 Room Air I & O 10/18/18 07:00 Intake Total 1100 ml Output Total 900 ml Balance 200 ml Capillary Refill : Less Than 3 SecondsLess Than 3 Seconds General Appearance: Moderate Distress Neck: Supple Respiratory: Lungs Clear Cardiovascular: Regular Rate, Rhythm Gastrointestinal: normal bowel sounds, soft, tenderness (LLQ) Neurologic/Psychiatric: Alert, Disoriented, Other (tender over sacral area as well as right SI joint area and pain to left lower anterior rib area) Skin: Warm/Dry Results Lab Microbiology 10/16/18 Urine Culture - Final, Complete Mixed Bacterial Petty With Escherichia coli Assessment/Plan Assessment/Plan Assess & Plan/Chief Complaint 1. UTI--continue rocephin, preliminary culture shows E coli so will continue with IV rocephin until final culture back as patient has history of recurrent UTIs and had recently been treated outpatien for a UTI just prior to this admission 2. Falls with head trauma, low back pain and left 11/12 rib fractures-- fentanyl now and will schedule routine tylenol to see if helps, IS to prevent pneumonia 3. Dementia with worsening confusion--discussed this may be a new level for her dementia or could be due to possible recent TIA--she does have carotid artery stenosis, we have avoided aspirin because of her falls and especially because her most recent fall involved head trauma with a head laceration, plan if for DC to SNF Clinical Quality Measures Admission Status Admission Dx 1. Acute UTI--treat with rocephin due to history of recurrent UTIs 2. Frequent Falls with associated head trauma and left 11,12 rib fractures-- pain control and start PT for gait, IS to prevent pneumonia 3. Confusion with known dementia--CT scan negative but concern of TIAs so will also check carotid dopplers, SS to discuss placement 4. Hypertension--resume home medications DVT/VTE Risk/Contraindication: Risk Factor Score Per Nursin RFS Level Per Nursing on Admit: 2=Moderate HARPAL BURR DO Oct 18, 2018 10:51
[2018-10-18] MEDS ORDERED: VITAMIN D3 1,000 UNITS (CHOLECALCIFEROL) TABLET PO NR (11:00)
[2018-10-18] MEDS: cefTRIAXone 1,000 MG/SWFI 10 ML IV PUSH IV SCH ×2 (12:51)
[2018-10-18] MEDS: CALCITONIN NASAL 200 INTLU/AC (FORTICAL) 3.7 ML BTL SCH (12:52)
[2018-10-18] MEDS: ACETAMINOPHEN 325 MG TABLET PO SCH ×2 (15:47→20:12)
[2018-10-18 16:00] VITALS: BP 135/81
[2018-10-18] MEDS: TEMAZEPAM 7.5 MG CAP (RESTORIL) PO SCH (20:12)
[2018-10-19 00:34] VITALS: BP 133/68
[2018-10-19] MEDS: RT-ALBUTEROL/IPRATROPIUM 3 ML (DUONEB) VIAL INH SCH ×4 (01:26→20:27)
[2018-10-19 04:05] VITALS: BP 159/72
--- NOTE | 2018-10-19 05:25 | Progress Note (SOAP) ---
Subjective Date Seen by a Provider: Oct 19, 2018 Time Seen by a Provider: 05:21 Subjective/Events-last exam Fwup UTI, falls with head trauma and left rib fracture, dementia with worsening confusion and possible recent TIA, low back pain with history of lumbar degenerative disc disease. Now complaining mostly of tailbone pain and right leg sciatica/radiculopathy. Some cough this AM. Objective Exam Vital Signs Date Time Temp Pulse Resp B/P (MAP) Pulse Ox O2 Delivery O2 Flow Rate FiO2 10/19/18 04:05 97.1 89 19 159/72 (101) 97 Room Air 10/19/18 01:26 96 Room Air 10/19/18 00:34 96.7 82 18 133/68 (89) 93 Room Air 10/18/18 21:45 Room Air 10/18/18 20:00 Room Air 10/18/18 16:00 99.0 98 18 135/81 (99) 94 Room Air 10/18/18 15:25 95 Room Air 10/18/18 08:07 98 Room Air 10/18/18 08:00 Room Air 10/18/18 08:00 98.8 103 20 162/82 (108) 98 Room Air I & O 10/19/18 07:00 Intake Total 1250 ml Balance 1250 ml Capillary Refill : Less Than 3 SecondsLess Than 3 Seconds General Appearance: Mild Distress (to pain) Respiratory: Lungs Clear Cardiovascular: Regular Rate, Rhythm Gastrointestinal: normal bowel sounds, non tender, soft Extremity: Non Tender, No Calf Tenderness, No Pedal Edema Neurologic/Psychiatric: Alert Skin: Warm/Dry Results Lab Microbiology 10/16/18 Urine Culture - Final, Complete Mixed Bacterial Petty With Escherichia coli Assessment/Plan Assessment/Plan Assess & Plan/Chief Complaint 1. UTI--continue rocephin, final culture shows E coli is sensitive so will continue with IV rocephin as patient has history of recurrent UTIs and had recently been treated outpatien for a UTI just prior to this admission 2. Falls with head trauma, low back pain and left 11/12 rib fractures-- fentanyl now and will schedule routine tylenol to see if helps, IS to prevent pneumonia, add gabapentin for sciatica/radiculopathy and will check updated L/S spine x-rays 3. Dementia with worsening confusion--discussed this may be a new level for her dementia or could be due to possible recent TIA--she does have carotid artery stenosis, we have avoided aspirin because of her falls and especially because her most recent fall involved head trauma with a head laceration, plan if for DC to SNF Clinical Quality Measures Admission Status Admission Dx 1. Acute UTI--treat with rocephin due to history of recurrent UTIs 2. Frequent Falls with associated head trauma and left 11,12 rib fractures-- pain control and start PT for gait, IS to prevent pneumonia 3. Confusion with known dementia--CT scan negative but concern of TIAs so will also check carotid dopplers, SS to discuss placement 4. Hypertension--resume home medications DVT/VTE Risk/Contraindication: Risk Factor Score Per Nursin RFS Level Per Nursing on Admit: 2=Moderate HARPAL BURR DO Oct 19, 2018 05:25
[2018-10-19 06:39] VITALS: BP 129/59
[2018-10-19 08:00] VITALS: BP 132/61
[2018-10-19] MEDS: SENNA W/DOCUSATE (SENOKOT S) TABLET PO SCH ×2 (08:35→20:19)
[2018-10-19] MEDS: VITAMIN D3 1,000 UNITS (CHOLECALCIFEROL) TABLET PO SCH (08:36)
[2018-10-19] MEDS: ACETAMINOPHEN 325 MG TABLET PO SCH ×3 (08:36→20:19)
[2018-10-19] MEDS: amLODIPine 5 MG (NORVASC) TAB PO SCH (08:36)
[2018-10-19] MEDS: CALCITONIN NASAL 200 INTLU/AC (FORTICAL) 3.7 ML BTL SCH (08:37)
[2018-10-19] MEDS ORDERED: NON-FORMULARY MEDICATION 1 EA EA (Amlodipine Besylate 5 MG) PO SCH (09:00)
--- NOTE | 2018-10-19 10:53 | Diagnostic Imaging Report ---
INDICATION: Low back pain. Five views of the lumbar spine were obtained. FINDINGS: The alignment of the lumbar spine is normal. The vertebral body heights are well-maintained. There is no spondylolysis or spondylolisthesis. No fractures are identified. There are mild degenerative changes. IMPRESSION: Mild lumbar spondylosis, otherwise unremarkable. Dictated by: Dictated on workstation # [id number]
[2018-10-19] MEDS: cefTRIAXone 1,000 MG/SWFI 10 ML IV PUSH IV SCH ×2 (12:27)
[2018-10-19 15:38] VITALS: BP 119/62
[2018-10-19] MEDS: TEMAZEPAM 7.5 MG CAP (RESTORIL) PO SCH (19:30)
[2018-10-19] MEDS ORDERED: GABAPENTIN 100 MG (NEURONTIN) CAP PO SCH (21:00)
[2018-10-20] VITALS: BP 126/58
[2018-10-20] MEDS: RT-ALBUTEROL/IPRATROPIUM 3 ML (DUONEB) VIAL INH SCH ×4 (02:27→19:04)
[2018-10-20] MEDS: ACETAMINOPHEN 325 MG TABLET PO SCH ×3 (08:23→20:56)
[2018-10-20] MEDS ORDERED: ASPIRIN 81 MG CHEW (CHILDREN'S ASA) PO ONE (09:15)
[2018-10-20] MEDS ORDERED: ALPRAZolam 0.25 MG (XANAX) TAB PO ONE (09:15)
[2018-10-20] MEDS ORDERED: ALPRAZolam 0.25 MG (XANAX) TAB PO PRN (09:15)
--- NOTE | 2018-10-20 09:15 | Progress Note (SOAP) ---
Subjective Date Seen by a Provider: Oct 20, 2018 Time Seen by a Provider: 09:12 Subjective/Events-last exam Fwup UTI, falls with head trauma and left rib fracture, dementia with worsening confusion and possible recent TIA, low back pain with history of lumbar degenerative disc disease. Agitated and shakey this AM. Objective Exam Vital Signs Date Time Temp Pulse Resp B/P (MAP) Pulse Ox O2 Delivery O2 Flow Rate FiO2 10/20/18 09:00 97 Room Air 10/20/18 02:27 97 Room Air 10/20/18 00:00 98.1 88 18 126/58 (80) 94 Room Air 10/19/18 20:27 96 Room Air 10/19/18 20:00 Room Air 10/19/18 15:38 98.0 90 18 119/62 (81) 98 Room Air I & O 10/20/18 07:00 Intake Total 2085 ml Balance 2085 ml Capillary Refill : Less Than 3 SecondsLess Than 3 Seconds General Appearance: Mild Distress (anxious/tearful) Respiratory: Lungs Clear Cardiovascular: Regular Rate, Rhythm Gastrointestinal: normal bowel sounds, non tender, soft Neurologic/Psychiatric: Alert, Disoriented Skin: Warm/Dry Results Lab Microbiology 10/16/18 Urine Culture - Final, Complete Mixed Bacterial Petty With Escherichia coli Assessment/Plan Assessment/Plan Assess & Plan/Chief Complaint 1. UTI--continue rocephin, final culture shows E coli is sensitive so will continue with IV rocephin as patient has history of recurrent UTIs and had recently been treated outpatien for a UTI just prior to this admission 2. Falls with head trauma, low back pain and left 05/27 rib fractures-- fentanyl now and will schedule routine tylenol to see if helps, IS to prevent pneumonia, DC gabapentin as more agitated and shakey this AM 3. Dementia with worsening confusion--discussed this may be a new level for her dementia or could be due to possible recent TIA--she does have carotid artery stenosis, had avoided aspirin because of her falls and especially because her most recent fall involved head trauma with a head laceration but had episode yesterday where was nonresponsive and near syncopal so will start low dose aspirin, plan if for DC to SNF Clinical Quality Measures Admission Status Admission Dx 1. Acute UTI--treat with rocephin due to history of recurrent UTIs 2. Frequent Falls with associated head trauma and left 12 rib fractures-- pain control and start PT for gait, IS to prevent pneumonia 3. Confusion with known dementia--CT scan negative but concern of TIAs so will also check carotid dopplers, SS to discuss placement 4. Hypertension--resume home medications DVT/VTE Risk/Contraindication: Risk Factor Score Per Nursin RFS Level Per Nursing on Admit: 2=Moderate HARPAL BURR DO Oct 20, 2018 09:15
[2018-10-20] MEDS: VITAMIN D3 1,000 UNITS (CHOLECALCIFEROL) TABLET PO SCH (09:56)
[2018-10-20] MEDS: amLODIPine 5 MG (NORVASC) TAB PO SCH (09:57)
[2018-10-20] MEDS: CALCITONIN NASAL 200 INTLU/AC (FORTICAL) 3.7 ML BTL SCH (09:58)
--- NOTE | 2018-10-20 12:30 | NUR ---
Patient's iv access lost. Family states patient is suppose to be discharged tomorrow and asks this RN if I would call the doctor to ask her if patient can be switched to PO antibiotics and leave IV out. Called Dr. Tejeda to report. states okay to leave IV out and start patient on Augmentin 250 mg PO BID. First dose now. Will carry out orders and continue to monitor.
[2018-10-20] MEDS: cefTRIAXone 1,000 MG/SWFI 10 ML IV PUSH IV SCH ×4 (12:56→13:23)
[2018-10-20] MEDS: AUGMENTIN 500 MG TAB (AMOXICILLIN/CLAVULANATE) PO SCH ×2 (13:33→20:55)
[2018-10-20 16:00] VITALS: BP 133/61
[2018-10-20] MEDS: SENNA W/DOCUSATE (SENOKOT S) TABLET PO SCH (20:00)
[2018-10-21] VITALS: BP 132/75
[2018-10-21] MEDS: RT-ALBUTEROL/IPRATROPIUM 3 ML (DUONEB) VIAL INH SCH ×2 (02:03→10:24)
[2018-10-21] MEDS: AUGMENTIN 500 MG TAB (AMOXICILLIN/CLAVULANATE) PO SCH (06:08)
[2018-10-21 08:00] VITALS: BP 129/77
[2018-10-21] MEDS: VITAMIN D3 1,000 UNITS (CHOLECALCIFEROL) TABLET PO SCH (08:30)
[2018-10-21] MEDS: amLODIPine 5 MG (NORVASC) TAB PO SCH (08:30)
[2018-10-21] MEDS: SENNA W/DOCUSATE (SENOKOT S) TABLET PO SCH (08:31)
[2018-10-21] MEDS: ACETAMINOPHEN 325 MG TABLET PO SCH ×2 (08:31→12:48)
[2018-10-21] MEDS: CALCITONIN NASAL 200 INTLU/AC (FORTICAL) 3.7 ML BTL SCH (08:34)
[2018-10-21] MEDS ORDERED: ALPR0.254 PO (08:56)
[2018-10-21] MEDS ORDERED: ASPIRIN 81 MG CHEW (CHILDREN'S ASA) PO SCH (09:00)
--- NOTE | 2018-10-21 09:00 | NUR ---
DR. BURR HERE TO SEE PATIENT. PATIENT DENIES RIB PAIN, BUT COMPLAINS OF HEADACHE, BILATERAL ARM PAIN AND LOWER BACK PAIN. CONFUSED, BUT COOPERATIVE. BURN AREA ON LEFT BUTTOCK SHOWN TO DR. BURR.
--- NOTE | 2018-10-21 11:13 | Discharge Inst-Skilled Nursing ---
Discharge Inst-Skilled NF Patient Instructions Patient Problems: Worsening Dementia with Behavior Disturbance Recurrent UTIs Frequent Falls Left 05/27 rib fractures Low Back Pain/Lumbar Degenerative Disc Disease Consult/Follow Up/Orders Follow Up Appt.: 1 week Skilled NF Admit to: [facility] [place] (SNF) I certify that SNF services are required to be given on an inpatient basis because of the above named patient's need for long term care on a continuing basis for the conditions(s) for which he/she was receiving inpatient hospital services prior to his/her transfer to the SNF. Usp Facility Order: Heavy Equipment Mechanic-Evaluate & Treat, Physical Therapy-Evaluate & Treat, Wound Care-Eval/Treat Oxygen Delivery Method: Room Air Discharge Diet: No Restrictions Daily Activity as Tolerated: Yes New & Resume Previous Orders Evon Tejeda Oct 21, 2018 11:11 Pneu Vac Indicated: Yes EVON TEJEDA DO Oct 21, 2018 11:13
[2018-10-21] MEDS ORDERED: AMOX1TAB11 PO (11:15)
[2018-10-21] MEDS ORDERED: Calcitonin (11:15)
[2018-10-21] MEDS ORDERED: SENN-20 PO (11:15)
[2018-10-21] MEDS ORDERED: CHOL100045 PO (11:15)
--- NOTE | 2018-10-21 13:22 | NUR ---
CM/SS, patient discharged to new skilled placement with [facility] via their transport at 1230. Family members plan short term rehab and then permanent move to assisted living arrangement. CARE Assessment completed with patient and with her daughter Vijaya Adkins who is DPOA and POA-HC. Faxed CARE to [facility] and [facility], included in continuum of care packet to accompany patient. Granddaughter with patient this a.m. keeping her company until the move. Unit RN updated.
[2018-10-21 13:48] VITALS: BP 129/77
== END 2018-10-21 13:00 | DRG 184 ==
LOC: EDUNIT# 10:04 → ER 10:05 → 4TH 12:13
PROVIDERS: ADMIT Family Medicine; ATTEND Family Medicine
DX: S22.42XA Multiple fractures of ribs, left side, initial encounter for closed fracture (principal); N30.00 Acute cystitis without hematuria; F03.91 Unspecified dementia, unspecified severity, with behavioral disturbance; G45.9 Transient cerebral ischemic attack, unspecified; I10 Essential (primary) hypertension; H91.93 Unspecified hearing loss, bilateral; R26.81 Unsteadiness on feet; R29.6 Repeated falls; R40.2410 Glasgow coma scale score 13-15, unspecified time; M51.16 Intervertebral disc disorders with radiculopathy, lumbar region; M19.91 Primary osteoarthritis, unspecified site; M62.81 Muscle weakness (generalized); I65.29 Occlusion and stenosis of unspecified carotid artery; B96.20 Unspecified Escherichia coli [E. coli] as the cause of diseases classified elsewhere; Z97.4 Presence of external hearing-aid; Z86.010 Personal history of colon polyps; W18.30XA Fall on same level, unspecified, initial encounter
CPT/HCPCS: 70450; 71045; 71046; 72110; 72125; 74176; 81000; 87077; 87088; 87186; 93880; 94640; 94664; 94760; 96374

== ENCOUNTER 2019-03-10 10:50 | Emergency (ER) | payer MEDICARE ==
[~2019-03-10] VITALS: Ht 152.4 cm; Wt 56.7 kg
[~2019-03-10 10:50] MED LIST changes: +ACET-2267 PO; +ALPR0.254 PO; +AMLO5TAB9 PO; +AMOX1TAB11 PO; +CHOL100045 PO; +Calcitonin; +DICL100G31 TOP; +DORZ10DR18 OS; +IBUP-30 PO; +SENN-20 PO; +TRAV5DRO OU
--- NOTE | 2019-03-10 11:10 | ED Fall/Injury ---
General Chief Complaint: Trauma-Non Activation Stated Complaint: FALL;FACE INJ Source: patient, caregiver Exam Limitations: clinical condition (dementia) History of Present Illness Date Seen by Provider: Mar 10, 2019 Time Seen by Provider: 10:57 Initial Comments The patient presents to ER by private conveyance from [facility] with a caregiver and chief complaint that just prior to arrival she was walking down the hallway dubbed her toe on something and fell forward landing on her nose. She denies being passed out. It was not witnessed by staff but staff immediately attended to her. She did have a bloody nose initially that spontaneously stopped. She does not take antiplatelet or blood thinners. She is not having any significant pain. Staff says she is at baseline. She says she can breathe through both of her nostrils. She takes medicine for blood pressure and Bactrim for prophylaxis presumably against UTIs. She denies any dysuria. She did urinate in the lobby bathroom prior to coming back. She denies frequency or hesitancy. Allergies and Home Medications Allergies Coded Allergies: No Known Drug Allergies (Unverified , 04/29/12) Home Medications Acetaminophen 500 Mg Tablet, 500 MG PO Q4H PRN for PAIN-MILD, (Reported) Alprazolam 0.25 Mg Tablet, 0.25 MG PO Q8H PRN for AGITATION Prescribed by: HARPAL BURR on 10/21/18 0856 Amlodipine Besylate 5 Mg Tablet, 5 MG PO DAILY, (Reported) Amoxicillin/Potassium Clav 1 Each Tablet, 250 MG PO BID WITH MEALS Prescribed by: HARPAL BURR on 10/21/18 1115 Cholecalciferol (Vitamin D3) 1,000 Unit Tablet, 1,000 UNIT PO DAILY Prescribed by: HARPAL BURR on 10/21/18 111 Diclofenac Sodium 100 Gm Gel..gram., TOP BID PRN for ARTHRITIS PAIN, (Reported) Dorzolamide HCl 10 Ml Drops, 1 DROP OS BID, (Reported) Sennosides/Docusate Sodium 1 Each Tablet, 2 EA PO BID Prescribed by: HARPAL BURR on 10/21/18 1115 Travoprost 5 Ml Drops, 1 DROP OU HS, (Reported) [Calcitonin] 3.7 ML SOLN, 0 ML NA DAILY Prescribed by: HARPAL BURR on 10/21/18 1115 Patient Home Medication List Home Medication List Reviewed: Yes Review of Systems Review of Systems Constitutional: No chills, No diaphoresis Eyes: Denies Blindness, Denies Blurred Vision Ears, Nose, Mouth, Throat: denies ear pain, denies ear discharge Respiratory: No cough, No dyspnea on exertion Cardiovascular: No chest pain, No Hx of Intervention, No palpitations, No vascular heart diseas Gastrointestinal: No abdominal pain, No nausea, No vomiting Genitourinary: No discharge, No dysuria Musculoskeletal: No back pain, No joint pain Past Vppnfxd-Kxzqll-Rftioj Hx Patient Social History Alcohol Use: Rarely Uses Alcohol Beverage of Choice: Beer Recreational Drug Use: No Smoking Status: Never a Smoker Recent Hopitalizations: No Immunizations Up To Date Tetanus Booster (TDap): Unknown Seasonal Allergies Seasonal Allergies: No Past Medical History Surgeries: Yes (CATARACTS, BACK ) Respiratory: No Cardiac: Yes Hypertension Neurological: Yes Dementia Reproductive Disorders: No Female Reproductive Disorders: Denies Sexually Transmitted Disease: No HIV/AIDS: No Genitourinary: No Gastrointestinal: Yes (HX COLON POLYPS) Musculoskeletal: Yes (STENOSIS) Endocrine: No Cataract Hearing Impairment: Bilateral Hearing Aide Cancer: No Psychosocial: No Integumentary: No Blood Disorders: No Adverse Reaction/Blood Tranf: No Physical Exam Vital Signs Vital Signs - First Documented 03/10/19 11:05 Temp 97.4 Pulse 87 Resp 18 B/P (MAP) 124/82 (96) Pulse Ox 98 Capillary Refill : Height, Weight, BMI Height: 5'1.00" Weight: 138lbs. 5.0oz. 62.043190nm; 26.1 BMI Method:Stated General Appearance: WD/WN, no apparent distress HEENT: PERRL/EOMI, TMs normal, pharynx normal, other (Minor swelling and abrasion across the nasal bridge. Nares are patent. Dried red blood in the nasal passage.) Progress/Results/Core Measures Results/Orders My Orders Orders - JENY RODRIGUEZ Ct Head/Face/Cervical Wo (03/10/19 11:07) Vital Signs/I&O 03/10/19 11:05 Temp 97.4 Pulse 87 Resp 18 B/P (MAP) 124/82 (96) Pulse Ox 98 Progress Progress Note : Time: 11:09 Progress Note Urinalysis if we can obtain one. CT of the head neck and facial bones. Patient otherwise is unremarkable on exam except for some minor abrasions to the bridge of nose. Diagnostic Imaging Diagonstic Imaging: CT (noncontrast) Plain Films/CT/US/NM/MRI: facial bones, c-spine, head Comments [facility] [place], [place] NAME: VINCENT HERNANDEZ [facility] REC#: [id number] PT STATUS: REG ER : 1940 PHYSICIAN: JENY RODRIGUEZ MD ADMIT DATE: 03/10/19/ER Draft Date of Exam:03/10/19 CT HEAD/FACE/CERVICAL WO PROCEDURE: CT head, face, and cervical spine without contrast. TECHNIQUE: Multiple contiguous axial images were obtained through the head, neck, and facial bones without the use of intravenous contrast. Sagittal and coronal reformations through the cervical spine and facial bones were also performed. Auto Exposure Controls were utilized during the CT exam to meet ALARA standards for radiation dose reduction. INDICATION: Fall. Landed on face with swelling of the nose and bleeding. Neck pain. COMPARISON: 10/16/2018. FINDINGS: CT HEAD: The ventricles and cortical sulci are age appropriate. There is no midline shift or mass effect. No acute intracranial hemorrhage is seen. There is no CT evidence of acute territorial ischemia. No focal masses or collections are present. Mineralization involving the bilateral basal ganglia is again noted. The calvarium is intact. The visualized paranasal sinuses are clear. CT FACE: No acute facial fractures are visualized. The mandible is intact with normal alignment of the bilateral TMJs. The zygomatic arches and pterygoid plates are intact without acute fracture. The nasal bone and bony nasal septum demonstrate no displaced fractures. There is slight rightward deviation of the bony nasal septum. Soft tissue swelling is seen overlying the nose. Prior surgical changes are seen in the left globe. Otherwise, the globes and orbits are unremarkable. CT CERVICAL SPINE: No acute fracture or dislocation is seen in the cervical spine. No focal osseous lesions. Vertebral body heights are well maintained. The craniocervical junction is well maintained. Mild degenerative changes are seen in the cervical spine with disc osteophyte complexes and uncovertebral arthropathy. Soft tissues of the neck are unremarkable. IMPRESSION: 1. No hemorrhage or focal intra-axial mass. No CT evidence of large acute territorial ischemia. 2. No acute fracture or dislocation in the cervical spine. 3. No acute facial fractures. Soft tissue edema is seen overlying the nose. Dictated on workstation # [id number] Dict: 03/10/19 1237 Trans: 03/10/19 1248 [id number] Interpreted by: PRATIK ANNE DO Electronically signed by: Reviewed: Reviewed by Me Departure Impression Primary Impression: Fall Qualified Codes: W19.XXXA - Unspecified fall, initial encounter Additional Impressions: Epistaxis due to trauma Abrasion, nose w/o infection Disposition: 01 HOME, SELF-CARE Condition: Stable Departure-Patient Inst. Decision time for Depature: 13:49 Referrals: HARPAL BURR DO (PCP/Family) Primary Care Physician Patient Instructions: Preventing Falls in the Older Adult Add. Discharge Instructions: All discharge instructions reviewed with patient and/or family. Voiced understanding. JENY RODRIGUEZ Mar 10, 2019 11:10
--- NOTE | 2019-03-10 11:14 | NUR ---
SEE LIST FOR CURRENT MEDS
--- NOTE | 2019-03-10 12:49 | Diagnostic Imaging Report ---
PROCEDURE: CT head, face, and cervical spine without contrast. TECHNIQUE: Multiple contiguous axial images were obtained through the head, neck, and facial bones without the use of intravenous contrast. Sagittal and coronal reformations through the cervical spine and facial bones were also performed. Auto Exposure Controls were utilized during the CT exam to meet ALARA standards for radiation dose reduction. INDICATION: Fall. Landed on face with swelling of the nose and bleeding. Neck pain. COMPARISON: 10/16/2018. FINDINGS: CT HEAD: The ventricles and cortical sulci are age appropriate. There is no midline shift or mass effect. No acute intracranial hemorrhage is seen. There is no CT evidence of acute territorial ischemia. No focal masses or collections are present. Mineralization involving the bilateral basal ganglia is again noted. The calvarium is intact. The visualized paranasal sinuses are clear. CT FACE: No acute facial fractures are visualized. The mandible is intact with normal alignment of the bilateral TMJs. The zygomatic arches and pterygoid plates are intact without acute fracture. The nasal bone and bony nasal septum demonstrate no displaced fractures. There is slight rightward deviation of the bony nasal septum. Soft tissue swelling is seen overlying the nose. Prior surgical changes are seen in the left globe. Otherwise, the globes and orbits are unremarkable. CT CERVICAL SPINE: No acute fracture or dislocation is seen in the cervical spine. No focal osseous lesions. Vertebral body heights are well maintained. The craniocervical junction is well maintained. Mild degenerative changes are seen in the cervical spine with disc osteophyte complexes and uncovertebral arthropathy. Soft tissues of the neck are unremarkable. IMPRESSION: 1. No hemorrhage or focal intra-axial mass. No CT evidence of large acute territorial ischemia. 2. No acute fracture or dislocation in the cervical spine. 3. No acute facial fractures. Soft tissue edema is seen overlying the nose. Dictated by: Dictated on workstation # [id number]
[2019-03-10 14:00] VITALS: BP 124/82
== END 2019-03-10 13:57 | disposition home or self-care (01) ==
LOC: EDUNIT# 10:50 → ER 10:51
DX: S00.31XA Abrasion of nose, initial encounter (principal); R04.0 Epistaxis; F03.90 Unspecified dementia, unspecified severity, without behavioral disturbance, psychotic disturbance, mood disturbance, and anxiety; I10 Essential (primary) hypertension; Z86.010 Personal history of colon polyps; W20.8XXA Other cause of strike by thrown, projected or falling object, initial encounter; Y93.01 Activity, walking, marching and hiking
CPT/HCPCS: 70450; 70486; 72125

== ENCOUNTER 2019-03-12 10:14 | Emergency (ER) | payer MEDICARE ==
[~2019-03-12] VITALS: Ht 165.1 cm; Wt 77.1 kg
--- NOTE | 2019-03-12 11:03 | ED Fall/Injury ---
General Chief Complaint: Trauma-Non Activation Stated Complaint: FALL Nursing Triage Note: PT TO [facility] VIA W/C TO FOLLOW UP FROM FALL. ELI CAREGIVER REPORTS PT FELL OUTSIDE ON PAVEMENT, NOSE FIRST, AROUND 1000 TODAY. PT HAS MINOIR ABRASIONS ON NOSE AND REPORTS NOSE BLED FOR A FEW MINUTES AFTER FALL. PT WAS HERE FOR A PREVIOUS FALL ON 03/10/19. Source: patient Exam Limitations: no limitations History of Present Illness Date Seen by Provider: Mar 12, 2019 Time Seen by Provider: 10:40 Initial Comments Here with report of fall today. This is the second fall this week. Apparently she fell on 03/10/19 and hit her face on the ground. Today she was outside at her assisted living facility and apparently fell. Patient reports that she doesn't know why she fell but she fell on the concrete and landed straight on her face. Denies other significant injury. Does have abrasions to her face as well as a nosebleed that seems to be controlled currently. She is not on blood thinners. She denies loss of consciousness. She is here with 2 care attendants from the facility. Denies nausea or vomiting. She is quite hard of hearing. Location Injury Occurred: OUTSIDE PAVEMENT Occurred: just prior to arrival (approximately an hour ago) Severity: moderate Injuries/Pain Location: face Context: unknown Loss of Consciousness: no loss of consciousness Modifying Factors: Improves With Rest Associated Symptoms (Fall): No Abdominal Pain, No Chest Pain; Confusion (chronic dementia); No Muscle Spasms, No Nausea/Vomiting, No Neck Pain, No Katherin rtness of Air Allergies and Home Medications Allergies Coded Allergies: No Known Drug Allergies (Unverified , 04/29/12) Home Medications Acetaminophen 500 Mg Tablet, 500 MG PO Q4H PRN for PAIN-MILD, (Reported) Alprazolam 0.25 Mg Tablet, 0.25 MG PO Q8H PRN for AGITATION Prescribed by: HARPAL BURR on 10/21/18 0856 Amlodipine Besylate 5 Mg Tablet, 5 MG PO DAILY, (Reported) Amoxicillin/Potassium Clav 1 Each Tablet, 250 MG PO BID WITH MEALS Prescribed by: HARPAL BURR on 10/21/18 1115 Cholecalciferol (Vitamin D3) 1,000 Unit Tablet, 1,000 UNIT PO DAILY Prescribed by: HARPAL BURR on 10/21/18 111 Diclofenac Sodium 100 Gm Gel..gram., TOP BID PRN for ARTHRITIS PAIN, (Reported) Dorzolamide HCl 10 Ml Drops, 1 DROP OS BID, (Reported) Sennosides/Docusate Sodium 1 Each Tablet, 2 EA PO BID Prescribed by: HARPAL BURR on 10/21/18 1115 Travoprost 5 Ml Drops, 1 DROP OU HS, (Reported) [Calcitonin] 3.7 ML SOLN, 0 ML NA DAILY Prescribed by: HARPAL BURR on 10/21/18 111 Patient Home Medication List Home Medication List Reviewed: Yes Review of Systems Review of Systems Constitutional: see HPI; No chills, No fever Eyes: No Symptoms Reported Ears, Nose, Mouth, Throat: epistaxis; denies mouth pain, denies loose teeth Respiratory: No cough, No short of breath Cardiovascular: No chest pain, No edema Gastrointestinal: No abdominal pain, No nausea, No vomiting Genitourinary: no symptoms reported Musculoskeletal: No back pain, No neck pain Skin: change in color, lesions Psychiatric/Neurological: Denies Headache, Denies Weakness All Other Systems Reviewed Negative Unless Noted: Yes Past Uivzxij-Tffcee-Dbkvnz Hx Past Med/Social Hx: Reviewed Nursing Past Med/Soc Hx Patient Social History Alcohol Use: Denies Use Alcohol Beverage of Choice: Beer Recreational Drug Use: No Smoking Status: Never a Smoker 2nd Hand Smoke Exposure: No Recent Foreign Travel: No Contact w/Someone Who Travel: No Recent Infectious Disease Expo: No Recent Hopitalizations: No Physical Abuse: No Sexual Abuse: No Mistreated: No Fear: No Immunizations Up To Date Tetanus Booster (TDap): Unknown Seasonal Allergies Seasonal Allergies: No Past Medical History Surgeries: Yes (CATARACTS, BACK ) Respiratory: No Cardiac: Yes Hypertension Neurological: Yes Dementia Reproductive Disorders: No Female Reproductive Disorders: Denies Sexually Transmitted Disease: No HIV/AIDS: No Genitourinary: No Gastrointestinal: Yes (HX COLON POLYPS) Musculoskeletal: Yes (STENOSIS) Endocrine: No Cataract Hearing Impairment: Bilateral Hearing Aide Cancer: No Psychosocial: No Integumentary: No Blood Disorders: No Adverse Reaction/Blood Tranf: No Family Medical History Reviewed Nursing Family Hx No Pertinent Family Hx Physical Exam Vital Signs Vital Signs - First Documented 03/12/19 10:25 Temp 98.2 Pulse 86 Resp 16 B/P (MAP) 145/71 (95) Pulse Ox 100 O2 Delivery Room Air Capillary Refill : Less Than 3 Seconds Height, Weight, BMI Height: 5'5.00" Weight: 170lbs. 5.0oz. [id number]; 26.1 BMI Method:Stated General Appearance: WD/WN, no apparent distress HEENT: PERRL/EOMI, pharynx normal, other (old blood bilateral nares without obvious septal hematoma bilateral.) Neck: full range of motion, supple Cardiovascular: regular rate, rhythm, no murmur Respiratory: lungs clear, normal breath sounds Gastrointestinal: non tender, soft Back: normal inspection, no CVA tenderness, no vertebral tenderness Extremities: non-tender, normal inspection Neurologic/Psychiatric: alert, oriented x 3 Skin: normal color, warm/dry Sherwin Coma Score Best Eye Response: (4) Open Spontaneously Best Verbal Response: (5) Oriented Best Motor Response: (6) Obeys Commands Progress/Results/Core Measures Results/Orders My Orders Orders - CHICA FERNANDEZ MD Ct Head/Face/Cervical Wo (03/12/19 10:45) Vital Signs/I&O 03/12/19 10:25 Temp 98.2 Pulse 86 Resp 16 B/P (MAP) 145/71 (95) Pulse Ox 100 O2 Delivery Room Air Blood Pressure Mean: 95 Progress Progress Note : Progress Note Seen and evaluated. CT head, face and neck ordered. Monitor patient. 1319: Mildly displaced left lateral nasal bone fracture noted on CT but otherwise no acute findings. Discharge back to care home with return precautions. Care team verbalize understanding instructions and agreement with plan. Departure Impression Primary Impression: Nasal bones, closed fracture Qualified Codes: S02.2XXA - Fracture of nasal bones, initial encounter for closed fracture Additional Impressions: Facial contusion Qualified Codes: S00.83XA - Contusion of other part of head, initial encounter Facial abrasion Qualified Codes: S00.81XA - Abrasion of other part of head, initial encounter Head injury Qualified Codes: S09.90XA - Unspecified injury of head, initial encounter Disposition: 01 HOME, SELF-CARE Condition: Improved Departure-Patient Inst. Decision time for Depature: 13:26 Referrals: ERICH TORRES MD, JACQUELINE S DO (PCP/Family) Primary Care Physician Patient Instructions: Nose Fracture (DC), Minor Head Injury (DC), Skin Abrasions, Contusion (DC) Add. Discharge Instructions: All discharge instructions reviewed with patient and/or family. Voiced understanding. Wound care per local policy. You may use light coat of antibiotic ointment over abrasions. Do not blow nose for the next several days. Follow-up with Dr. Torres for recheck of the nose within one week. Call his office for appointment. Follow-up with your doctor within one week for recheck and further evaluation. You should consider using assist device such as a walker to help prevent falls. Discussed this with your doctor. Return for worsening, fever, vomiting, weakness, breathing problems or other concerns as needed. CHICA FERNANDEZ MD Mar 12, 2019 11:03
--- NOTE | 2019-03-12 11:24 | NUR ---
This RN ambulated pt to restroom at this time w/o difficulty
--- NOTE | 2019-03-12 13:03 | Diagnostic Imaging Report ---
PROCEDURE: CT head, face, and cervical spine without contrast. TECHNIQUE: Multiple contiguous axial images were obtained through the head, neck, and facial bones without the use of intravenous contrast. Sagittal and coronal reformations through the cervical spine and facial bones were also performed. Auto Exposure Controls were utilized during the CT exam to meet ALARA standards for radiation dose reduction. INDICATION: Fall. Facial injuries. Epistaxis. COMPARISON: CT head maxillofacial and cervical spine 03/10/2019. FINDINGS: CT head maxillofacial: Advanced generalized cerebral and cerebellar parenchymal volume loss. Advanced leukoaraiosis. No intracranial hemorrhage, mass effect, hydrocephalus or extra-axial fluid collections. Postoperative changes in the left globe. The paranasal sinuses and mastoids are clear. No skull base or calvarial fractures. Mildly laterally displaced left nasal bone fractures. These are new since the prior exam. No other maxillofacial fractures. Normal alignment of the temporomandibular joints. Mandible is intact. CT cervical spine: Minimal anterolisthesis of C3 on C4. Alignment is otherwise unremarkable. Vertebral body heights preserved. Moderate degenerative endplate changes are greatest at C4-C5 and C6-C7. No fractures are identified. Posterior disc osteophyte complex is result in at least mild spinal canal narrowing at C4-C7. Mild atherosclerotic calcifications in the carotid bifurcations. Lung apices are clear. IMPRESSION: 1. Mild lateral displacement of the left nasal bone fractures. These are new since 2 days ago. No other fractures. 2. No acute intracranial or cervical spine CT findings. Dictated by: Dictated on workstation # [id number]
[2019-03-12 13:40] LABS: BILIRUBIN,URINE NEGATIVE (NEGATIVE); COLOR,URINE YELLOW; GLUCOSE, URINE (UA) NEGATIVE (NEGATIVE); KETONES,URINE NEGATIVE (NEGATIVE); LEUKOCYTE ESTERASE ,URINE NEGATIVE (NEGATIVE); NITRITE,URINE NEGATIVE (NEGATIVE); PH,URINE 8 (5-9); PROTEIN,URINE NEGATIVE (NEGATIVE); UROBILINOGEN,URINE NORMAL (NORMAL)
[2019-03-12 13:59] LABS: CLARITY,URINE CLEAR
[2019-03-12 14:00] LABS: BACTERIA,URINE NEGATIVE /HPF; SQUAMOUS EPITHELIAL CELL,UR 0-2 /HPF
[2019-03-12 14:21] VITALS: BP 124/83
== END 2019-03-12 14:21 | disposition home or self-care (01) ==
LOC: EDUNIT# 10:14 → ER 10:15
DX: S09.90XA Unspecified injury of head, initial encounter (principal); S02.2XXA Fracture of nasal bones, initial encounter for closed fracture; S00.83XA Contusion of other part of head, initial encounter; I10 Essential (primary) hypertension; F03.90 Unspecified dementia, unspecified severity, without behavioral disturbance, psychotic disturbance, mood disturbance, and anxiety; R40.2142 Coma scale, eyes open, spontaneous, at arrival to emergency department; R40.2252 Coma scale, best verbal response, oriented, at arrival to emergency department; R40.2362 Coma scale, best motor response, obeys commands, at arrival to emergency department; Z86.010 Personal history of colon polyps; W19.XXXA Unspecified fall, initial encounter; W22.8XXA Striking against or struck by other objects, initial encounter; Y92.480 Sidewalk as the place of occurrence of the external cause
CPT/HCPCS: 70450; 70486; 72125; 81000